=== PATIENT | female | born 1950 | race Caucasian/White ===

== ENCOUNTER 2020-06-26 17:29 | Inpatient (IN) | payer MEDICARE, BC ==
[2020-06-26] MEDS ORDERED: SODIUM CHLORIDE 0.9% 1,000 ML IV STA (18:01)
[2020-06-26 18:42] LABS: Basophils # (A) 0.2 k/uL (0-0.2); Basophils % (A) 1 %; Eosinophils # (A) 0.7 k/uL (0-0.7); Eosinophils % (A) 3 %; HCT 42.8 % (34.0-46.0); Lymphocytes # (A) 1.6 k/uL (1.0-4.8); Lymphocytes % (A) 7 %; MCH 29.7 pg (25.0-35.0); MCHC 32.7 g/dL (31.0-37.0); MCV 90.9 fL (80.0-100.0); Mean Platelet Volume 8.7; Monocytes # (A) 1.1 k/uL (0-1.0); Monocytes % (A) 5 %; Neutrophils # (A) 17.9 k/uL (1.3-7.7); Neutrophils % (A) 83 %; Platelet Count 483 k/uL (150-450); RBC 4.71 m/uL (3.80-5.40); RDW 13.2 % (11.5-15.5); WBC 21.7 k/uL (3.8-10.6)
[2020-06-26 18:55] LABS: Albumin 3.8 g/dL (3.5-5.0); Total Protein 6.8 g/dL (6.3-8.2)
[2020-06-26 19:07] LABS: Prothrombin Time >130.0 sec (9.0-12.0)
[2020-06-26 19:09] LABS: INR >10.0 (<1.2)
[2020-06-26 19:10] LABS: Partial Thromboplastin Time 89.6 sec (22.0-30.0)
[2020-06-26 19:15] LABS: Calcium 10.2 mg/dL (8.4-10.2); Potassium 5.4 mmol/L (3.5-5.1); Total Bilirubin 0.9 mg/dL (0.2-1.3)
--- NOTE | 2020-06-26 19:30 | XR ---
EXAMINATION TYPE: XR chest 2V DATE OF EXAM: 06/26/2020 COMPARISON: NONE HISTORY: Weakness TECHNIQUE: FINDINGS: Heart appears enlarged. There is no heart failure. Lungs are clear of consolidation. There is no sign of pleural effusion. Bony thorax is intact. IMPRESSION: No active cardiopulmonary disease. Cardiomegaly.
[2020-06-26 20:05] LABS: Amorphous Sediment,Urine Rare /hpf; Appearance,Urine Turbid (Clear); Bacteria,Urine Many /hpf; Bilirubin,Urine Negative (Negative); Blood,Urine Large (Negative); Color,Urine Light Red; Glucose,Urine (UA) Negative (Negative); Ketones,Urine Negative (Negative); Leukocyte Esterase,Urine Large (Negative); Mucus,Urine Rare /hpf; Nitrite,Urine Negative (Negative); PH, Urine 7.5 (5.0-8.0); Protein,Urine 2+ (Negative); RBC,Urine >182 /hpf (0-5); Specific Gravity,Urine 1.013 (1.001-1.035); WBC,Urine >182 /hpf (0-5)
[2020-06-26] MEDS ORDERED: cefTRIAXone IN SWFI 1,000 MG/10 ML SYRINGE IVP STA (20:12)
[2020-06-26] MEDS ORDERED: PHYTONADIONE ORAL 5 MG/5 ML ORAL.SYRG PO STA (20:13)
[2020-06-26] MEDS ORDERED: ACETAMINOPHEN TAB 325 MG TAB PO STA (21:06)
[2020-06-26] MEDS ORDERED: NALOXONE 0.4 MG/ML 1 ML VIAL IV PRN (21:08)
[2020-06-26] MEDS ORDERED: ACETAMINOPHEN TAB 325 MG TAB PO PRN (21:08)
--- NOTE | 2020-06-26 21:08 | ED ---
Weakness HPI - General Chief complaint: Weakness Stated complaint: Failure to thrive Time Seen by Provider: 06/26/20 17:47 Source: patient Mode of arrival: ambulatory - History of Present Illness Initial comments: Patient is a 70-year-old female past nuchal history of congestive heart failure, diabetes, hypertension, DVT/PE on Coumadin who presents to the emergency room with reported failure to thrive. EMS was called by the patient's sister. It was reported that the patient was sitting in her own urine and feces for several days. She has been unable to ambulate on her own. Normally uses a walker to ambulate. Patient states that she's been extremely weak. She has had right knee pain after she sustained a fall last month. She was seen at [facility] after the fall in did not have any injuries. States of the right knee pain has been getting progressively worse. Patient arrives with EMS and police who petition the patient. She states that she hasn't been eating or drinking for the past 4 days as she has been unable to get up and access her kitchen. She denies any chest pain or shortness of breath. No abdominal pain. No changes in her bowel or bladder habits. Denies any fevers or chills. No other alleviating, Perceptin or modifying factors - Related Data Home Medications Medication Instructions Recorded Confirmed Citalopram Hydrobromide [CeleXA] 40 mg PO DAILY 06/27/20 06/27/20 Furosemide [Lasix] 20 mg PO BID 06/27/20 06/27/20 Gabapentin 300 mg PO BID 06/27/20 06/27/20 Omeprazole 20 mg PO DAILY 06/27/20 06/27/20 Potassium Chloride [Klor-Con 20] 20 meq PO BID 06/27/20 06/27/20 Propranolol HCl 40 mg PO BID 06/27/20 06/27/20 Simvastatin [Zocor] 40 mg PO HS 06/27/20 06/27/20 Warfarin Sodium 5 mg PO HS 06/27/20 06/27/20 buPROPion XL [Wellbutrin Xl] 300 mg PO DAILY 06/27/20 06/27/20 lisinopriL [Prinivil] 20 mg PO BID 06/27/20 06/27/20 Previous Rx's Medication Instructions Recorded Cefuroxime Axetil [Ceftin] 500 mg PO BID 6 Days #12 tab 09/10/20 Allergies Allergy/AdvReac Type Severity Reaction Status Date / Time Sulfa (Sulfonamide Allergy Unknown Verified 06/27/20 10:29 Antibiotics) Review of Systems ROS Statement: Those systems with pertinent positive or pertinent negative responses have been documented in the HPI. ROS Other: All systems not noted in ROS Statement are negative. Past Medical History Past Medical History: Heart Failure, Diabetes Mellitus, Hypertension History of Any Multi-Drug Resistant Organisms: None Reported Past Surgical History: Bowel Resection, Cholecystectomy, Hysterectomy Past Psychological History: No Psychological Hx Reported Smoking Status: Former smoker Past Alcohol Use History: None Reported Past Drug Use History: Unable to Obtain - Past Family History Father Family Medical History: Myocardial Infarction ([place]) Mother Family Medical History: Cancer, Congestive Heart Failure (CHF), Dementia General Exam General appearance: alert, in no apparent distress, obese, other (unkempt ) Head exam: Present: atraumatic, normocephalic, normal inspection Eye exam: Present: normal appearance, PERRL, EOMI. Absent: scleral icterus, co njunctival injection, periorbital swelling ENT exam: Present: normal exam, mucous membranes moist Neck exam: Present: normal inspection. Absent: tenderness, meningismus, lymphadenopathy Respiratory exam: Present: normal lung sounds bilaterally. Absent: respiratory distress, wheezes, rales, rhonchi, stridor Cardiovascular Exam: Present: regular rate, normal rhythm, normal heart sounds. Absent: systolic murmur, diastolic murmur, rubs, gallop, clicks GI/Abdominal exam: Present: soft, normal bowel sounds. Absent: distended, tenderness, guarding, rebound, rigid External exam: Present: other (heavily soiled underwear. Bleeding noted - appears to be from the patients urethra. No vaginal or rectal bleeding appreciated. Significant amount of stool material throughout patients genital region) Extremities exam: Present: normal inspection, full ROM, normal capillary refill. Absent: tenderness, pedal edema, joint swelling, calf tenderness Back exam: Present: normal inspection Neurological exam: Present: alert, oriented X3, CN II-XII intact Psychiatric exam: Present: normal affect, normal mood Skin exam: Present: warm, dry, intact, normal color. Absent: rash Course Vital Signs 06/26/20 06/26/20 06/26/20 17:43 17:47 18:00 Temperature 98.7 F Pulse Rate 90 Pulse Rate [ Firer Automatic Stoker ] Respiratory 18 Rate Blood Pressure 95/70 95/70 Blood Pressure [Right Arm] O2 Sat by Pulse 93 L 93 L 93 L Oximetry 06/26/20 06/26/20 06/26/20 18:30 19:00 19:30 Temperature Pulse Rate Pulse Rate [ Firer Automatic Stoker ] Respiratory Rate Blood Pressure 105/67 98/62 106/74 Blood Pressure [Right Arm] O2 Sat by Pulse 93 L 94 L Oximetry 06/26/20 06/26/20 06/26/20 20:00 21:45 22:30 Temperature 98.0 F 97.0 F L Pulse Rate 90 Pulse Rate [ 86 Firer Automatic Stoker ] Respiratory 12 16 Rate Blood Pressure 106/74 106/79 Blood Pressure 91/66 [Right Arm] O2 Sat by Pulse 95 93 L Oximetry - Reevaluation(s) Reevaluation #1: Spoke with Dr. Cerda who states the patient can go to a regular floor 06/26/20 21:17 EKG Findings - EKG Comments: EKG Findings:: EKG demonstrates a normal sinus rhythm with a ventricular rate of 84. MO 174. QRS 86. QTC of 465. No acute ST segment elevations or depressions concerning for ischemic changes Medical Decision Making - Medical Decision Making Upon arrival the patient was placed into room 4. A thorough history and physical exam was performed. Patient does have notable bleeding between her thighs which appears to be coming from the urethra. No vaginal bleeding noted. She is hooked up to continuous pulse ox and cardiac monitoring. PIV is established and the patient was given a liter bolus of normal saline followed by 100 mL per hour. Rosario is placed and the specimen is sent for analysis. Chest x-rays performed. Laboratory studies are remarkable for a white count of 21.7. INR is greater than 10. PT greater than 1:30. Urinalysis is remarkable for greater than 182 red blood cells and white blood cells with many white blood cell clumps and many bacteria. Blood cultures were obtained. The patient was given a dose of Rocephin. I also gave the patient 5 mg of vitamin K. X-ray of the patient's right knee demonstrates a knee effusion. Patient does have signs of sepsis however due to her elevated INR I did not perform arthrocentesis. Orthopedics will be consult. I discussed the case with Radha from the [facility] also discuss case with Dr. Russell states the patient can go to a regular floor. INR will be ordered for the morning. Patient remained in stable condition awaiting transfer upstairs - Lab Data Result diagrams: 07/01/20 08:33 06/30/20 06:06 Lab Results 06/26/20 06/26/20 06/26/20 Range/Units 18:27 18:27 18:27 WBC 21.7 H (3.8-10.6) k/uL RBC 4.71 (3.80-5.40) m/uL Hgb 14.0 (11.4-16.0) gm/dL Hct 42.8 (34.0-46.0) % MCV 90.9 (80.0-100.0) fL MCH 29.7 (25.0-35.0) pg MCHC 32.7 (31.0-37.0) g/dL RDW 13.2 (11.5-15.5) % Plt Count 483 H (150-450) k/uL Neutrophils % 83 % Lymphocytes % 7 % Monocytes % 5 % Eosinophils % 3 % Basophils % 1 % Neutrophils # 17.9 H (1.3-7.7) k/uL Lymphocytes # 1.6 (1.0-4.8) k/uL Monocytes # 1.1 H (0-1.0) k/uL Eosinophils # 0.7 (0-0.7) k/uL Basophils # 0.2 (0-0.2) k/uL PT >130.0 H (9.0-12.0) sec INR >10.0 H* (<1.2) APTT 89.6 H (22.0-30.0) sec Sodium (137-145) mmol/L Potassium (3.5-5.1) mmol/L Chloride (98-107) mmol/L Carbon Dioxide (22-30) mmol/L Anion Gap mmol/L BUN (7-17) mg/dL Creatinine (0.52-1.04) mg/dL Est GFR (CKD-EPI)AfAm (>60 ml/min/1.73 sqM) Est GFR (CKD-EPI)NonAf (>60 ml/min/1.73 sqM) Glucose (74-99) mg/dL Plasma Lactic Acid Ray (0.7-2.0) mmol/L Calcium (8.4-10.2) mg/dL Total Bilirubin (0.2-1.3) mg/dL AST (14-36) U/L ALT (4-34) U/L Alkaline Phosphatase (38-126) U/L Creatine Kinase (30-135) U/L Troponin I (0.000-0.034) ng/mL NT-Pro-B Natriuret Pep pg/mL Total Protein (6.3-8.2) g/dL Albumin (3.5-5.0) g/dL Urine Color Light Red Urine Appearance Turbid H (Clear) Urine pH 7.5 (5.0-8.0) Ur Specific Redby 1.013 (1.001-1.035) Urine Protein 2+ H (Negative) Urine Glucose (UA) Negative (Negative) Urine Ketones Negative (Negative) Urine Blood Large H (Negative) Urine Nitrite Negative (Negative) Urine Bilirubin Negative (Negative) Urine Urobilinogen 4.0 (<2.0) mg/dL Ur Leukocyte Esterase Large H (Negative) Urine RBC >182 H (0-5) /hpf Urine WBC >182 H (0-5) /hpf Urine WBC Clumps Many H (None) /hpf Amorphous Sediment Rare H (None) /hpf Urine Bacteria Many H (None) /hpf Urine Mucus Rare H (None) /hpf 06/26/20 06/26/20 06/26/20 Range/Units 18:27 18:27 18:27 WBC (3.8-10.6) k/uL RBC (3.80-5.40) m/uL Hgb (11.4-16.0) gm/dL Hct (34.0-46.0) % MCV (80.0-100.0) fL MCH (25.0-35.0) pg MCHC (31.0-37.0) g/dL RDW (11.5-15.5) % Plt Count (150-450) k/uL Neutrophils % % Lymphocytes % % Monocytes % % Eosinophils % % Basophils % % Neutrophils # (1.3-7.7) k/uL Lymphocytes # (1.0-4.8) k/uL Monocytes # (0-1.0) k/uL Eosinophils # (0-0.7) k/uL Basophils # (0-0.2) k/uL PT (9.0-12.0) sec INR (<1.2) APTT (22.0-30.0) sec Sodium 138 (137-145) mmol/L Potassium 5.4 H (3.5-5.1) mmol/L Chloride 106 (98-107) mmol/L Carbon Dioxide 17 L (22-30) mmol/L Anion Gap 15 mmol/L BUN 32 H (7-17) mg/dL Creatinine 0.86 (0.52-1.04) mg/dL Est GFR (CKD-EPI)AfAm 79 (>60 ml/min/1.73 sqM) Est GFR (CKD-EPI)NonAf 68 (>60 ml/min/1.73 sqM) Glucose 120 H (74-99) mg/dL Plasma Lactic Acid Ray 1.4 (0.7-2.0) mmol/L Calcium 10.2 (8.4-10.2) mg/dL Total Bilirubin 0.9 (0.2-1.3) mg/dL AST 32 (14-36) U/L ALT 18 (4-34) U/L Alkaline Phosphatase 149 H (38-126) U/L Creatine Kinase 28 L (30-135) U/L Troponin I <0.012 (0.000-0.034) ng/mL NT-Pro-B Natriuret Pep pg/mL Total Protein 6.8 (6.3-8.2) g/dL Albumin 3.8 (3.5-5.0) g/dL Urine Color Urine Appearance (Clear) Urine pH (5.0-8.0) Ur Specific Redby (1.001-1.035) Urine Protein (Negative) Urine Glucose (UA) (Negative) Urine Ketones (Negative) Urine Blood (Negative) Urine Nitrite (Negative) Urine Bilirubin (Negative) Urine Urobilinogen (<2.0) mg/dL Ur Leukocyte Esterase (Negative) Urine RBC (0-5) /hpf Urine WBC (0-5) /hpf Urine WBC Clumps (None) /hpf Amorphous Sediment (None) /hpf Urine Bacteria (None) /hpf Urine Mucus (None) /hpf 06/26/20 Range/Units 18:27 WBC (3.8-10.6) k/uL RBC (3.80-5.40) m/uL Hgb (11.4-16.0) gm/dL Hct (34.0-46.0) % MCV (80.0-100.0) fL MCH (25.0-35.0) pg MCHC (31.0-37.0) g/dL RDW (11.5-15.5) % Plt Count (150-450) k/uL Neutrophils % % Lymphocytes % % Monocytes % % Eosinophils % % Basophils % % Neutrophils # (1.3-7.7) k/uL Lymphocytes # (1.0-4.8) k/uL Monocytes # (0-1.0) k/uL Eosinophils # (0-0.7) k/uL Basophils # (0-0.2) k/uL PT (9.0-12.0) sec INR (<1.2) APTT (22.0-30.0) sec Sodium (137-145) mmol/L Potassium (3.5-5.1) mmol/L Chloride (98-107) mmol/L Carbon Dioxide (22-30) mmol/L Anion Gap mmol/L BUN (7-17) mg/dL Creatinine (0.52-1.04) mg/dL Est GFR (CKD-EPI)AfAm (>60 ml/min/1.73 sqM) Est GFR (CKD-EPI)NonAf (>60 ml/min/1.73 sqM) Glucose (74-99) mg/dL Plasma Lactic Acid Ray (0.7-2.0) mmol/L Calcium (8.4-10.2) mg/dL Total Bilirubin (0.2-1.3) mg/dL AST (14-36) U/L ALT (4-34) U/L Alkaline Phosphatase (38-126) U/L Creatine Kinase (30-135) U/L Troponin I (0.000-0.034) ng/mL NT-Pro-B Natriuret Pep 123 pg/mL Total Protein (6.3-8.2) g/dL Albumin (3.5-5.0) g/dL Urine Color Urine Appearance (Clear) Urine pH (5.0-8.0) Ur Specific Redby (1.001-1.035) Urine Protein (Negative) Urine Glucose (UA) (Negative) Urine Ketones (Negative) Urine Blood (Negative) Urine Nitrite (Negative) Urine Bilirubin (Negative) Urine Urobilinogen (<2.0) mg/dL Ur Leukocyte Esterase (Negative) Urine RBC (0-5) /hpf Urine WBC (0-5) /hpf Urine WBC Clumps (None) /hpf Amorphous Sediment (None) /hpf Urine Bacteria (None) /hpf Urine Mucus (None) /hpf Disposition Clinical Impression: Supratherapeutic INR, Weakness, Right knee pain, Acute UTI, Hematuria Disposition: ADMITTED IP TO THIS [facility] Condition: Serious Is patient prescribed a controlled substance at d/c from ED?: No Decision to Admit Reason: Admit from EC Decision Date: 06/26/20 Decision Time: 21:07
--- NOTE | 2020-06-26 21:48 | XR ---
EXAMINATION TYPE: XR knee complete RT DATE OF EXAM: 06/26/2020 COMPARISON: NONE HISTORY: Knee pain TECHNIQUE: 3 views FINDINGS: There is minor spurring of the medial tibial condyle. I see no fracture nor dislocation. Th ere is probably knee joint effusion. There is no significant joint space narrowing. IMPRESSION: Knee joint effusion. Minor osteoarthritic changes.
[2020-06-26] MEDS: SODIUM CHLORIDE 0.9% 1,000 ML IV SCH (22:34)
[2020-06-26 23:26] LABS: Glucose,Whole Blood 121 mg/dL (75-99)
[2020-06-27] MEDS ORDERED: HYDROcodone/APAP 5-325MG 1 EACH TAB PO STA (01:35)
[2020-06-27 05:00] LABS: Basophils # (A) 0.1 k/uL (0-0.2); Basophils % (A) 1 %; Eosinophils # (A) 0.7 k/uL (0-0.7); Eosinophils % (A) 3 %; HCT 39.7 % (34.0-46.0); HGB 12.6 gm/dL (11.4-16.0); Hypochromasia Slight; Lymphocytes # (A) 1.8 k/uL (1.0-4.8); Lymphocytes % (A) 9 %; MCH 29.5 pg (25.0-35.0); MCHC 31.8 g/dL (31.0-37.0); MCV 92.8 fL (80.0-100.0); Mean Platelet Volume 8.4; Monocytes # (A) 1.2 k/uL (0-1.0); Monocytes % (A) 6 %; Neutrophils # (A) 17.1 k/uL (1.3-7.7); Neutrophils % (A) 81 %; Platelet Count 375 k/uL (150-450); RBC 4.27 m/uL (3.80-5.40); RDW 13.2 % (11.5-15.5)
[2020-06-27 05:14] LABS: INR 8.7 (<1.2); Prothrombin Time 91.4 sec (9.0-12.0)
[2020-06-27 05:21] LABS: Albumin 3.2 g/dL (3.5-5.0); Potassium 4.1 mmol/L (3.5-5.1); Total Bilirubin 0.9 mg/dL (0.2-1.3); Total Protein 5.8 g/dL (6.3-8.2)
[2020-06-27 06:41] LABS: Glucose,Whole Blood 125 mg/dL (75-99)
[2020-06-27] MEDS ORDERED: PHYTONADIONE 5 MG in SODIUM CHLORIDE 0.9% 50 ML IVPB STA (07:45)
[2020-06-27] MEDS: SODIUM CHLORIDE 0.9% 1,000 ML IV SCH ×2 (08:15→17:10)
[2020-06-27] MEDS ORDERED: NON FORMULARY DRUG (Omeprazole [Omeprazole] 20 MG) PO SCH (11:45)
[2020-06-27] MEDS: CITALOPRAM HYDROBROMIDE 20 MG TAB PO SCH (12:17)
[2020-06-27] MEDS: HYDROcodone/APAP 5-325MG 1 EACH TAB PO PRN ×2 (12:17→18:11)
[2020-06-27] MEDS: FAMOTIDINE 20 MG TAB PO SCH ×2 (12:18→23:39)
[2020-06-27] MEDS: GABAPENTIN 300 MG CAP PO SCH ×2 (12:18→23:39)
[2020-06-27] MEDS: PROPRANOLOL 40 MG TAB PO SCH (12:36)
[2020-06-27] MEDS: buPROPion XL 300 MG TAB.ER.24H PO SCH (12:36)
--- NOTE | 2020-06-27 12:45 | XR ---
EXAMINATION TYPE: XR ankle complete RT DATE OF EXAM: 06/27/2020 COMPARISON: NONE HISTORY: 70-year-old female previous fall, sprained right ankle, pain TECHNIQUE: 3 views FINDINGS: Ankle mortise is congruent with preservation of the distal tibiofibular overlap. Osteopenia . Talar dome is intact. Some degenerative spurring at the tibiotalar joint. Small delineation to the Achilles tendon. Small plantar spur. Vascular calcifications. No acute fracture, subluxation, or disl ocation seen. IMPRESSION: Osteopenia. Mild degenerative change of the tibiotalar joint. No acute osseous abnormality seen.
--- NOTE | 2020-06-27 19:51 | P.HPIM ---
History of Present Illness This is a pleasant 70 years old female with past medical history of heart failure and diabetes mellitus and hypertension. Presents with generalized weakness and fall. Patient fell when she ran over her right feet by her walker few days ago and she was suffering from pain since then and she was on the floor for a while with limited movement only, where she has wet herself with stool and urine, however she did not call 911 because she did not want to call for it, for 3-4 days she had difficulty moving around however after 3 days the prescription guidewire was Doppler of her strips when she called him and asked him to call 911. However the police have. In addition her so she can bring her to emergency room, this morning she is fully awake and oriented, she is called and she was telling me "I did not come to the hospital because I was stupid" however psych service are going To evaluate the patient. Also patient states after she fell notices swelling in her right knee but this did not start to hurt her till the last 2-3 days. Patient is still complains from some pain and tenderness in her right ankle, however is not swollen, no deformity and she can move easily. Patient states that she has history of 2 PEs in the past and thus why she is on Coumadin Leukocytosis of 20 1.0K, INR More Than 10 and Repeat One Is 8.7 Which Is Elevated. BMP Is Unremarkable with Normal Sodium at 135, Potassium 4.1 and Creatinine 0.8. Glucose 125, Liver Enzymes elevated. Troponin Is Negative Less Than 0.01. UA Is Having Suspicious of Infection. Left Knee X-Ray Showing Knee Joint Effusion EKG showing normal sinus rhythm at [address]-T changes. Chest x-ray showing no active tissue. In the emergency room patient was started on ceftriaxone and normal sounding 100 mL per hour. She received vitamin K. Review of Systems CONSTITUTIONAL: No fever, no malaise, no fatigue. HEENT: No recent visual problems or hearing problems. Denied any sore throat. CARDIOVASCULAR: No orthopnea, PND, no palpitations, no syncope. PULMONARY: No shortness of breath, no cough, no hemoptysis. GASTROINTESTINAL: No diarrhea, no nausea, no vomiting, no abdominal pain. Normoactive bowel sounds. NEUROLOGICAL: No headaches, no weakness, no numbness. MUSCULOSKELETAL/RHEUMATOLOGICAL: Denies any joint pain, swelling, or any muscle pain. ENDOCRINE: Denies any polyuria or polydipsia. Past Medical History Past Medical History: Heart Failure, Diabetes Mellitus, Hypertension History of Any Multi-Drug Resistant Organisms: None Reported Past Surgical History: Bowel Resection, Cholecystectomy, Hysterectomy Past Anesthesia/Blood Transfusion Reactions: No Reported Reaction Past Psychological History: No Psychological Hx Reported Smoking Status: Former smoker Past Alcohol Use History: None Reported Past Drug Use History: Unable to Obtain - Past Family History Father Family Medical History: Myocardial Infarction ([place]) Mother Family Medical History: Cancer, Congestive Heart Failure (CHF), Dementia Medications and Allergies Home Medications Medication Instructions Recorded Confirmed Type Citalopram Hydrobromide [CeleXA] 40 mg PO DAILY 06/27/20 06/27/20 History Furosemide [Lasix] 20 mg PO BID 06/27/20 06/27/20 History Gabapentin 300 mg PO BID 06/27/20 06/27/20 History Omeprazole 20 mg PO DAILY 06/27/20 06/27/20 History Potassium Chloride [Klor-Con 20] 20 meq PO BID 06/27/20 06/27/20 History Propranolol HCl 40 mg PO BID 06/27/20 06/27/20 History Simvastatin [Zocor] 40 mg PO HS 06/27/20 06/27/20 History Warfarin Sodium 5 mg PO HS 06/27/20 06/27/20 History buPROPion XL [Wellbutrin Xl] 300 mg PO DAILY 06/27/20 06/27/20 History lisinopriL [Prinivil] 20 mg PO BID 06/27/20 06/27/20 History Allergies Allergy/AdvReac Type Severity Reaction Status Date / Time Sulfa (Sulfonamide Allergy Unknown Verified 06/27/20 10:29 Antibiotics) Physical Exam Vitals: Vital Signs Temp Pulse Pulse Resp BP BP Pulse Ox 06/27/20 08:00 98.1 F 93 16 106/62 93 L 06/27/20 07:00 80 19 06/27/20 06:00 81 19 06/27/20 05:00 82 18 06/27/20 04:00 98.2 F 82 19 108/62 95 06/27/20 03:00 86 20 06/27/20 02:00 84 13 06/27/20 01:30 89 13 06/27/20 01:00 87 12 97/58 06/27/20 00:30 85 16 91/66 06/27/20 00:00 98.0 F 86 13 97/58 96 06/26/20 23:00 116/71 06/26/20 22:30 97.0 F L 90 16 106/79 93 L 06/26/20 21:45 98.0 F 86 12 91/66 95 06/26/20 20:00 106/74 06/26/20 19:30 106/74 06/26/20 19:00 98/62 94 L 06/26/20 18:30 105/67 93 L 06/26/20 18:00 95/70 93 L 06/26/20 17:47 93 L 06/26/20 17:43 98.7 F 90 18 95/70 93 L Intake and Output 06/26/20 06/27/20 06/27/20 22:59 06:59 14:59 Intake Total 100 800 200 Output Total 100 750 60 Balance 0 50 140 Intake: IV 100 800 200 Sodium Chloride 0.9% 1, 100 800 200 000 ml @ 100 mls/hr IV . Q10H [facility] Rx#:[id number] Output: Urine 100 750 60 Other: Voiding Method Indwelling Catheter Indwelling Catheter Weight 121.563 kg 114.8 kg -GENERAL: The patient is alert and oriented x3, not in any acute distress. Obese HEENT: Pupils are round and equally reacting to light. EOMI. No scleral icterus. No conjunctival pallor. Normocephalic, atraumatic. No pharyngeal erythema. No thyromegaly. CARDIOVASCULAR: S1 and S2 present. No murmurs, rubs, or gallops. PULMONARY: Chest is clear to auscultation, no wheezing or crackles. ABDOMEN: Soft, nontender, nondistended, normoactive bowel sounds. No palpable organomegaly. MUSCULOSKELETAL: No joint swelling or deformity. -EXTREMITIES: No cyanosis, clubbing, or pedal edema. Right knee swollen, tender with limitation movement however there is no erythema or increased warmth NEUROLOGICAL: Gross neurological examination did not reveal any focal deficits. SKIN: No rashes. No petechiae Results CBC & Chem 7: 06/27/20 04:30 06/27/20 04:30 Labs: Abnormal Lab Results - Last 24 Hours (Table) 06/26/20 06/26/2006/26/20 Range/Units 18:27 18:27 18:27 WBC 21.7 H (3.8-10.6) k/uL Plt Count 483 H (150-450) k/uL Neutrophils # 17.9 H (1.3-7.7) k/uL Monocytes # 1.1 H (0-1.0) k/uL PT >130.0 H (9.0-12.0) sec INR >10.0 H* (<1.2) APTT 89.6 H (22.0-30.0) sec Sodium (137-145) mmol/L Potassium (3.5-5.1) mmol/L Carbon Dioxide (22-30) mmol/L BUN (7-17) mg/dL Glucose (74-99) mg/dL POC Glucose (mg/dL) (75-99) mg/dL Alkaline Phosphatase (38-126) U/L Creatine Kinase (30-135) U/L Total Protein (6.3-8.2) g/dL Albumin (3.5-5.0) g/dL Urine Appearance Turbid H (Clear) Urine Protein 2+ H (Negative) Urine Blood Large H (Negative) Ur Leukocyte Esterase Large H (Negative) Urine RBC >182 H (0-5) /hpf Urine WBC >182 H (0-5) /hpf Urine WBC Clumps Many H (None) /hpf Amorphous Sediment Rare H (None) /hpf Urine Bacteria Many H (None) /hpf Urine Mucus Rare H (None) /hpf 06/26/20 06/26/20 06/27/20 Range/Units 18:27 23:25 04:30 WBC 21.0 H (3.8-10.6) k/uL Plt Count (150-450) k/uL Neutrophils # 17.1 H (1.3-7.7) k/uL Monocytes # 1.2 H (0-1.0) k/uL PT (9.0-12.0) sec INR (<1.2) APTT (22.0-30.0) sec Sodium (137-145) mmol/L Potassium 5.4 H (3.5-5.1) mmol/L Carbon Dioxide 17 L (22-30) mmol/L BUN 32 H (7-17) mg/dL Glucose 120 H (74-99) mg/dL POC Glucose (mg/dL) 121 H (75-99) mg/dL Alkaline Phosphatase 149 H (38-126) U/L Creatine Kinase 28 L (30-135) U/L Total Protein (6.3-8.2) g/dL Albumin (3.5-5.0) g/dL Urine Appearance (Clear) Urine Protein (Negative) Urine Blood (Negative) Ur Leukocyte Esterase (Negative) Urine RBC (0-5) /hpf Urine WBC (0-5) /hpf Urine WBC Clumps (None) /hpf Amorphous Sediment (None) /hpf Urine Bacteria (None) /hpf Urine Mucus (None) /hpf 06/27/20 06/27/20 06/27/20 Range/Units 04:30 04:30 06:39 WBC (3.8-10.6) k/uL Plt Count (150-450) k/uL Neutrophils # (1.3-7.7) k/uL Monocytes # (0-1.0) k/uL PT 91.4 H (9.0-12.0) sec INR 8.7 H* (<1.2) APTT (22.0-30.0) sec Sodium 135 L (137-145) mmol/L Potassium (3.5-5.1) mmol/L Carbon Dioxide 21 L (22-30) mmol/L BUN 29 H (7-17) mg/dL Glucose 125 H (74-99) mg/dL POC Glucose (mg/dL) 125 H (75-99) mg/dL Alkaline Phosphatase (38-126) U/L Creatine Kinase (30-135) U/L Total Protein 5.8 L (6.3-8.2) g/dL Albumin 3.2 L (3.5-5.0) g/dL Urine Appearance (Clear) Urine Protein (Negative) Urine Blood (Negative) Ur Leukocyte Esterase (Negative) Urine RBC (0-5) /hpf Urine WBC (0-5) /hpf Urine WBC Clumps (None) /hpf Amorphous Sediment (None) /hpf Urine Bacteria (None) /hpf Urine Mucus (None) /hpf Microbiology - Last 24 Hours (Table) 06/26/20 18:27 Urine Culture - Preliminary Urine,Voided Thrombosis Risk Factor Assmnt - Choose All That Apply Each Factor Represents 1 point: Medical pt on bed rest, Obesity (BMI >25), Swollen legs (current) Each Risk Factor Represents 2 Points: Age 61-74 years Each Risk Factor Represents 3 Points: History of DVT/PE Other congenital or acquired thrombophilia - If yes, enter type in comment: No Thrombosis Risk Factor Assessment Total Risk Factor Score: 8 Thrombosis Risk Factor Assessment Level: High Risk Assessment and Plan Assessment: Acute urinary tract infection Generalized weakness secondary to above Left Knee increased effusion, rule out left knee hemarthrosis Coagulopathy secondary to Coumadin History of DVT/PE on Coumadin Hypertension Diabetes mellitus Heart failure Obesity with BMI of 39
[2020-06-27 20:40] LABS: Glucose,Whole Blood 147 mg/dL (75-99)
[2020-06-27] MEDS ORDERED: SIMVASTATIN 40 MG PO SCH (21:00)
[2020-06-27] MEDS: ATORVASTATIN 40 MG TAB PO SCH (23:39)
[2020-06-28] MEDS: PROPRANOLOL 40 MG TAB PO SCH ×3 (00:02→22:05)
--- NOTE | 2020-06-28 02:54 | CONS ---
CONSULTATION PSYCHIATRIC CONSULTATION. REASON FOR CONSULTATION: The patient was petitioned by the police cadet. HISTORY OF PRESENT ILLNESS: The patient is 70, female with multiple medical problems including diabetes, hypertension, deep venous thrombosis, congestive heart failure and chronic arthritis. The patient presented to the emergency room with a petition filled by the police cadet stated that the patient has been not eating for a couple of days and she has been unable to get up just lying in her urine and feces for several day. Today, patient stated that she knows that she has to accept her disability. She said "I am stubborn. I do not ask for help and I do not want to accept that I will be permanently handicapped". Patient stated that she has been hoarding everything in her apartment to the point that the landlord called Adult Protective Service who met with her a couple of weeks ago and they told her they will provide her with someone to clean her apartment and get rid of every "lot of junk". The patient stated that she needs to accept her disability and to change her attitude and "ask for help". She stated that she has her puppy, vadim, who has been her "a spoiled baby this is my baby". Today, I talked to the patient. She denied any suicidal or homicidal ideation. She denied any psychotic features. She stated that it is her fault that she did not ask for help when she felt weak and she fell down and she could not stand up. PAST PSYCHIATRIC HISTORY: There is no previous inpatient hospitalization. There is outpatient with Dr. Floyd Wilkes for many years and he has been giving her her psychotropic medications including Wellbutrin XL 300 mg in addition to citalopram 40 mg daily. SUBSTANCE ABUSE HISTORY: Patient denied any alcohol or illicit drug use. FAMILY HISTORY OF PSYCHIATRIC ILLNESS: She has a brother who killed himself more than 10 years ago. BRIEF SOCIAL HISTORY: The patient has 4 sisters and one brother who is 11 years ago. She never had been . 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 MEDICATIONS: Regarding her current medication, she is on gabapentin, Pepcid, propranolol, Lipitor, [place]. ALLERGIES: Allergy to SULFA. MENTAL STATUS EXAMINATION: Patient appears her stated age. She is alert, cooperative, very friendly, appears to have fair hygiene and grooming, wearing hospital gown. She gave good eye contact. There is no agitation. The patient's speech is increased in productivity, but not pressured. She reported that her mood is anxious, but her affect is constricted. She denied having any suicidal or homicidal ideation, intent, or plan. She denied having any visual hallucination or auditory hallucinations. Her thought process is circumstantial. She is alert, oriented x3. Her insight and judgment are fair. IMPRESSION: 1. Delirious reaction due to dehydration and metabolic disturbance, resolving. 2. Major depression disorder, mild, without psychotic features. 3. History of obsessive compulsive disorder, hoarding type. PLAN: At this time the patient does not meet criteria for inpatient psychiatric admission, so please disregard the petition. Delirium precautions recommended with the patient including avoid using narcotic and [employer] sedative also limit the anticholinergic medication when possible. Continue her on her current medications, Wellbutrin and Celexa. painting worker to gather further history from her sister and the patient might need placement. It seems to me that due to her multiple physical issues, she is not able to live on her own or at least provide with additional resources at home to help her medically. Psychiatry will sign off at this point and please contact me with any questions. KENYA / MEIN: [phone] /
[2020-06-28] MEDS: SODIUM CHLORIDE 0.9% 1,000 ML IV SCH ×2 (04:07→14:47)
[2020-06-28] MEDS: HYDROcodone/APAP 5-325MG 1 EACH TAB PO PRN ×2 (04:07→14:45)
[2020-06-28 05:07] LABS: Basophils # (A) 0.1 k/uL (0-0.2); Basophils % (A) 1 %; Eosinophils # (A) 0.4 k/uL (0-0.7); Eosinophils % (A) 4 %; HCT 33.4 % (34.0-46.0); HGB 10.7 gm/dL (11.4-16.0); Lymphocytes % (A) 9 %; MCH 29.6 pg (25.0-35.0); MCV 92.5 fL (80.0-100.0); Mean Platelet Volume 8.2; Monocytes # (A) 0.7 k/uL (0-1.0); Monocytes % (A) 7 %; Neutrophils # (A) 8.1 k/uL (1.3-7.7); Neutrophils % (A) 77 %; Platelet Count 281 k/uL (150-450); RBC 3.61 m/uL (3.80-5.40); RDW 13.1 % (11.5-15.5); WBC 10.5 k/uL (3.8-10.6)
[2020-06-28 05:16] LABS: INR 1.2 (<1.2); Prothrombin Time 11.7 sec (9.0-12.0)
[2020-06-28 05:35] LABS: Albumin 2.5 g/dL (3.5-5.0); Calcium 8.4 mg/dL (8.4-10.2); Total Bilirubin 0.5 mg/dL (0.2-1.3); Total Protein 4.8 g/dL (6.3-8.2)
--- NOTE | 2020-06-28 08:39 | US ---
EXAMINATION TYPE: US renals and bladder DATE OF EXAM: 06/28/2020 COMPARISON: NONE CLINICAL HISTORY: uti. ICU patient, morbidly obese, recent fall, abn labs, UTI EXAM MEASUREMENTS: Right Kidney: 10.1 x 5.3 x 5.1 cm Left Kidney: 10.0 x 5.7 x 4.1 cm large body habitus limits imaging Right Kidney: No hydronephrosis or masses seen Left Kidney: Very limited view, estimated size only Bladder: not distended IMPRESSION: 1. No acute retroperitoneal ultrasound abnormality. 2. Exam is very limited due to body habitus.
[2020-06-28] MEDS: buPROPion XL 300 MG TAB.ER.24H PO SCH (08:59)
[2020-06-28] MEDS: GABAPENTIN 300 MG CAP PO SCH ×2 (08:59→22:05)
[2020-06-28] MEDS: FAMOTIDINE 20 MG TAB PO SCH ×2 (08:59→22:05)
[2020-06-28] MEDS: CITALOPRAM HYDROBROMIDE 20 MG TAB PO SCH (08:59)
--- NOTE | 2020-06-28 12:30 | P.CNOR ---
History of Present Illness - [facility] Consult date: 06/28/20 Requesting physician: Rodney E Roxann Consult reason: joint pain (Right knee pain) History of present illness: Patient is a pleasant 70-year-old female who is seen and examined at bedside in regards to right knee pain. Medicine was concerned for knee effusion versus hemarthrosis given her supratherapeutic INR 8.7. There has been some difficulty with her history. Some of the the patient's history is obtained from the patient and some nursing from the family. Patient does admit over the past several months she has been fairly non-ambulatory and staying in her home since the outbreak of Covid-19. She was recently found at her home by family members and the patient had been lying on the floor for several days even up to a week in her own urine and feces. She was petitioned to the emergency department by the police and EMS. Patient states she did have a fall last week but did not have any injuries at that time. She states most significantly she had been experiencing right ankle pain. She states the right ankle pain has subsided and she is experiencing some right knee pain just over the past 3-4 days. Resting states consultation with psychology has been placed. Patient currently has no other complaints at the bedside today. Patient was found to have a urinary tract infection with gram-negative bacilli. Initially at presentation her WBC was 21.0 and is currently 10.5. She is currently on Rocephin. Patient does admit to generalized weakness of the upper extremities and lower extremities. Patient does have a history of DVT/PE and is currently on Coumadin. She was found be supratherapeutic with her INR at 8.7 at presentation to the emergency department and has reduced to 1.2. Past Medical History Past Medical History: Heart Failure, Diabetes Mellitus, Hypertension History of Any Multi-Drug Resistant Organisms: None Reported Past Surgical History: Bowel Resection, Cholecystectomy, Hysterectomy Past Anesthesia/Blood Transfusion Reactions: No Reported Reaction Past Psychological History: No Psychological Hx Reported Smoking Status: Former smoker Past Alcohol Use History: None Reported Past Drug Use History: Unable to Obtain - Past Family History Father Family Medical History: Myocardial Infarction (MD) Mother Family Medical History: Cancer, Congestive Heart Failure (CHF), Dementia Medications and Allergies Home Medications Medication Instructions Recorded Confirmed Type Citalopram Hydrobromide [CeleXA] 40 mg PO DAILY 06/27/20 06/27/20 History Furosemide [Lasix] 20 mg PO BID 06/27/20 06/27/20 History Gabapentin 300 mg PO BID 06/27/20 06/27/20 History Omeprazole 20 mg PO DAILY 06/27/20 06/27/20 History Potassium Chloride [Klor-Con 20] 20 meq PO BID 06/27/20 06/27/20 History Propranolol HCl 40 mg PO BID 06/27/20 06/27/20 History Simvastatin [Zocor] 40 mg PO HS 06/27/20 06/27/20 History Warfarin Sodium 5 mg PO HS 06/27/20 06/27/20 History buPROPion XL [Wellbutrin Xl] 300 mg PO DAILY 06/27/20 06/27/20 History lisinopriL [Prinivil] 20 mg PO BID 06/27/20 06/27/20 History Allergies Allergy/AdvReac Type Severity Reaction Status Date / Time Sulfa (Sulfonamide Allergy Unknown Verified 06/27/20 10:29 Antibiotics) Physical Examination Physical Exam: Patient is awake, alert, and oriented 3 Vital signs stable Adequate chest excursion with deep inspiration and expiration; O2 nasal cannula intact Mild firmness to palpation over the right superior lateral portion of the right knee Some generalized warmth of the entire right lower extremity No erythema or obvious signs of infection at the right knee Some pain with palpation along the right medial joint line No increased pain with varus or valgus stress of the right knee Small healing bruise over the right superior lateral portion of the right knee which is turning yellow/green Patient is able to perform dorsiflexion and plantarflexion of the right lower extremity without difficulty Neurovascularly intact right lower extremity No pain with palpation along the medial or lateral malleolus of the right ankle Results Pertinent studies: X-ray of the right knee taken on 06/26/2020: Minor spurring at the medial tibial condyle; no significant degenerative disc disease; probable knee joint effusion X-rays of the right ankle taken on 06/27/2020: Osteopenia; mild degenerative changes at the tibiotalar joint; no acute osseous abnormality - Labs Labs: Abnormal Lab Results - Last 24 Hours (Table) 06/27/20 06/28/20 06/28/20 Range/Units 20:38 04:35 04:35 RBC 3.61 L (3.80-5.40) m/uL Hgb 10.7 L (11.4-16.0) gm/dL Hct 33.4 L (34.0-46.0) % Neutrophils # 8.1 H (1.3-7.7) k/uL INR 1.2 H (<1.2) Sodium (137-145) mmol/L BUN (7-17) mg/dL Glucose (74-99) mg/dL POC Glucose (mg/dL) 147 H (75-99) mg/dL Total Protein (6.3-8.2) g/dL Albumin (3.5-5.0) g/dL 06/28/20 Range/Units 04:35 RBC (3.80-5.40) m/uL Hgb (11.4-16.0) gm/dL Hct (34.0-46.0) % Neutrophils # (1.3-7.7) k/uL INR (<1.2) Sodium 134 L (137-145) mmol/L BUN 19 H (7-17) mg/dL Glucose 141 H (74-99) mg/dL POC Glucose (mg/dL) (75-99) mg/dL Total Protein 4.8 L (6.3-8.2) g/dL Albumin 2.5 L (3.5-5.0) g/dL Microbiology - Last 24 Hours (Table) 06/26/20 18:27 Urine Culture - Preliminary Urine,Voided Gram Neg Bacilli Gram Neg Bacilli#2 06/26/20 20:49 Blood Culture - Preliminary Blood No Growth after 24 hours H & H 06/26/20 06/27/20 06/28/20 Range/Units 18:27 04:30 04:35 Hgb 14.0 12.6 10.7 L (11.4-16.0) gm/dL Hct 42.8 39.7 33.4 L (34.0-46.0) % Coagulation 06/26/20 06/27/20 06/28/20 Range/Units 18:27 04:30 04:35 INR >10.0 H* 8.7 H* 1.2 H (<1.2) Result Diagrams: 06/28/20 04:35 06/28/20 04:35 Assessment and Plan Assessment: Assessment: Right knee pain Mild effusion of the left knee, possible hemarthrosis Generalized weakness bilateral upper extremities and lower extremities Acute urinary tract infection Long-term anticoagulation use with Coumadin Acute urinary tract infection Hypertension Diabetes mellitus Heart disease Obesity with BMI of 41.6 (1) Knee effusion, right Current Visit: Yes Status: Acute Code(s): M25.461 - EFFUSION, RIGHT KNEE SNOMED Code(s): 889689353110679 (2) Diabetes mellitus Current Visit: Yes Status: Acute Code(s): E11.9 - TYPE 2 DIABETES MELLITUS WITHOUT COMPLICATIONS SNOMED Code(s): 51245926 (3) Heart disease Current Visit: Yes Status: Acute Code(s): I51.9 - HEART DISEASE, UNSPECIFIED SNOMED Code(s): 32505167 (4) Obesities, morbid Current Visit: Yes Status: Acute Code(s): E66.01 - MORBID (SEVERE) OBESITY DUE TO EXCESS CALORIES SNOMED Code(s): 666092346 (5) Hypertension Current Visit: Yes Status: Acute Code(s): I10 - ESSENTIAL (PRIMARY) HYPERTENSION SNOMED Code(s): 49801967 (6) Acute UTI Current Visit: Yes Status: Acute Code(s): N39.0 - URINARY TRACT INFECTION, S ITE NOT SPECIFIED SNOMED Code(s): 939804305 (7) Right knee pain Current Visit: Yes Status: Acute Code(s): M25.561 - PAIN IN RIGHT KNEE SNOMED Code(s): 44172759 (8) Supratherapeutic INR Current Visit: Yes Status: Acute Code(s): R79.1 - ABNORMAL COAGULATION PROFILE SNOMED Code(s): 028003126 (9) Weakness Current Visit: Yes Status: Acute Code(s): R53.1 - WEAKNESS SNOMED Code(s): 62761110 Plan: Plan: 1. Patient is discussed with Dr. Poncho Roldan. After physical examination of the patient, reviewing her imaging, and further discussion with the patient, we'll currently plan continue conservative treatment at this time. She has been experiencing some increased pain in her right knee over the past couple days. She is known have fallen approximately week ago without any injuries or increased knee pain at that time. She had been experiencing increased right ankle pain which has subsided. Imaging modalities of the right knee and ankle were taken without evidence of fracture or dislocation. She does have some generalized swelling around the right knee but I do not palpate any specific fluid collection. She has a mild firmness to palpation over the right superior lateral portion of the right knee. She has some generalized warmth of the entire right lower extremity. I do not see any significant erythema or obvious signs of infection at the right knee. Her most significant pain with palpation along the right medial joint line. She does not have increased pain with varus or valgus stress of the right knee. Patient also states she is been fairly non- weightbearing over the past several months since the outbreak of Covid-19. At t his time we will plan for Rahul wrap and ice over the right knee for comfort support as needed. We will plan to follow the patient for further evaluation. If her knee fusion appears to worsen, may plan for aspiration of her right knee. Patient feels continuous conservative treatment without aspiration of the right knee currently is a good plan of care. She does state her knee feels better after placement of Rahul wrap to the right knee. We're not planning for a treatment evaluation regards to her right ankle. She is able to perform good active range of motion right ankle without difficulty. She has no pain of the right ankle during physical exam. 2. Patient will continue to be seen and examined by medicine for other medical diagnoses 3. Patient currently waiting for consultation with psychology Time with Patient: Greater than 30
--- NOTE | 2020-06-28 15:51 | P.PN ---
Subjective Progress Note Date: 06/28/20 This is a 70-year-old female admitted with failure to thrive, increased weakness, medical debility, acute UTI, living in substandard conditions with APS following. Reports right knee pain from recent fall a month ago worsening. Knee x-ray reporting joint effusion. Orthopedic consult in place with recomme ndations pending. Good diet intake, denies nausea vomiting or diarrhea. Denies abdominal pain. Denies chest pain, palpitations or shortness of breath. Afebrile, normal WBC. Significant improvement in INR down to 1.2 from 8.7. Renal ultrasound pending Renal function improving, BUN 19, creatinine 0.79. Blood sugars controlled.VSS, maintaining O2 sats in the 90s on room air. Blood and Urine cultures pending. Objective - Vital Signs Vital signs: Vital Signs Temp 97.9 F 06/28/20 08:00 Pulse 70 06/28/20 08:00 Resp 15 06/28/20 08:00 BP 126/68 06/28/20 08:00 Pulse Ox 92 L 06/28/20 08:00 Intake & Output 06/27/20 06/28/20 06/28/20 18:59 06:59 18:59 Intake Total 1050 800 Output Total 470 375 Balance 580 425 Weight 120.5 kg Intake: IV 1000 800 Sodium Chloride 0.9% 1, 1000 800 000 ml @ 100 mls/hr IV . Q10H [facility] Rx#:[id number] Intake, IV Titration 50 Amount cefTRIAXone 1 gm In 50 Sodium Chloride 0.9% 50 ml @ 100 mls/hr IVPB Q24HR [facility] Rx#:[id number] Output: Urine 470 375 Other: Voiding Method Indwelling Catheter Indwelling Catheter - Exam PHYSICAL EXAM: VITAL SIGNS: As above GENERAL: Sitting up in bed, no acute distress HEENT: Conjunctivae normal. eyes normal. NECK: No JVD. No thyroid enlargement. No LNs, oral mucosa moist CARDIOVASCULAR: S1, S2 regular.. No murmur RESPIRATION: Breath sounds diminished in the bases. No rhonchi or crackles. No bronchial breathing. ABDOMEN: Soft, nontender . No guarding. no masses palpable. No ascites, No h epatosplenomegaly.Bowel sounds heard. LEGS: No edema. no swelling. No calf tenderness PSYCHIATRY: Alert and oriented X3, mood and affect normal. NERVOUS SYSTEM: Cranial N 2-12 grossly normal. Moves all 4 limbs. Diffuse weakness No focal deficits. Strength and sensation grossly intact.. Skin: Warm and dry, no rash - Labs CBC & Chem 7: 06/28/20 04:35 06/28/20 04:35 Labs: Abnormal Lab Results - Last 24 Hours (Table) 06/27/20 06/28/20 06/28/20 Range/Units 20:38 04:35 04:35 RBC 3.61 L (3.80-5.40) m/uL Hgb 10.7 L (11.4-16.0) gm/dL Hct 33.4 L (34.0-46.0) % Neutrophils # 8.1 H (1.3-7.7) k/uL INR 1.2 H (<1.2) Sodium (137-145) mmol/L BUN (7-17) mg/dL Glucose (74-99) mg/dL POC Glucose (mg/dL) 147 H (75-99) mg/dL Total Protein (6.3-8.2) g/dL Albumin (3.5-5.0) g/dL 06/28/20 Range/Units 04:35 RBC (3.80-5.40) m/uL Hgb (11.4-16.0) gm/dL Hct (34.0-46.0) % Neutrophils # (1.3-7.7) k/uL INR (<1.2) Sodium 134 L (137-145) mmol/L BUN 19 H (7-17) mg/dL Glucose 141 H (74-99) mg/dL POC Glucose (mg/dL) (75-99) mg/dL Total Protein 4.8 L (6.3-8.2) g/dL Albumin 2.5 L (3.5-5.0) g/dL Microbiology - Last 24 Hours (Table) 06/26/20 20:49 Blood Culture - Preliminary Blood No Growth after 24 hours 06/26/20 18:27 Urine Culture - Preliminary Urine,Voided Assessment and Plan Assessment: Acute urinary tract infection, cultures pending, present on admission Generalized weakness secondary to above Right Knee increased effusion, possible hemarthrosis Coagulopathy secondary to Coumadin History of DVT/PE on Coumadin Hypertension Diabetes mellitus Heart failure Obesity with BMI of 39 Plan: Continue on current medication regime ,monitoring and sent to make treatment. Maintain supportive care. Orthopedic/psych consults in place, recommendations pending. Patient is stable for transfer out of ICU to [facility] with remote telemetry. The impression and plan of care has been dictated as directed. : I performed a history and examination of this patient, discussed the same with the dictator. I agree with the dictator's note ,documented as a scribe. Any additional findings or plans will be noted.
[2020-06-28 16:55] LABS: Glucose,Whole Blood 144 mg/dL (75-99)
[2020-06-28 20:29] LABS: Glucose,Whole Blood 151 mg/dL (75-99)
[2020-06-28] MEDS: ATORVASTATIN 40 MG TAB PO SCH (22:05)
[2020-06-29] MEDS: SODIUM CHLORIDE 0.9% 1,000 ML IV SCH ×3 (00:36→19:50)
[2020-06-29 01:27] LABS: Hemoglobin A1C 6.3 % (4.0-6.0)
[2020-06-29 05:09] LABS: Basophils # (A) 0.1 k/uL (0-0.2); Basophils % (A) 1 %; Eosinophils # (A) 0.3 k/uL (0-0.7); Eosinophils % (A) 4 %; HCT 32.4 % (34.0-46.0); HGB 10.6 gm/dL (11.4-16.0); Lymphocytes # (A) 1.1 k/uL (1.0-4.8); Lymphocytes % (A) 12 %; MCH 29.9 pg (25.0-35.0); MCHC 32.7 g/dL (31.0-37.0); MCV 91.5 fL (80.0-100.0); Mean Platelet Volume 8.3; Monocytes # (A) 0.7 k/uL (0-1.0); Monocytes % (A) 8 %; Neutrophils % (A) 74 %; Platelet Count 284 k/uL (150-450); RBC 3.54 m/uL (3.80-5.40); RDW 13.1 % (11.5-15.5); WBC 9.4 k/uL (3.8-10.6)
[2020-06-29 05:25] LABS: ALT 13 U/L (4-34); AST 18 U/L (14-36); African American GFR (CKD) >90 (>60 ml/min/1.73 sqM); Albumin 2.5 g/dL (3.5-5.0); Alkaline Phosphatase 92 U/L (38-126); Anion Gap 6 mmol/L; Blood Urea Nitrogen 10 mg/dL (7-17); Calcium 8.4 mg/dL (8.4-10.2); Carbon Dioxide 26 mmol/L (22-30); Chloride 103 mmol/L (98-107); Glucose 106 mg/dL (74-99); Non-African American GFR(CKD) 89 (>60 ml/min/1.73 sqM); Sodium 135 mmol/L (137-145); Total Bilirubin 0.6 mg/dL (0.2-1.3); Total Protein 4.9 g/dL (6.3-8.2)
--- NOTE | 2020-06-29 09:28 | P.PN ---
Progress Note - Text Progress Note Date: 06/29/20 Orthopedics: History of present illness: Patient is a pleasant 70-year-old female who is seen and examined at bedside for follow-up evaluation in regards to right knee pain. Yesterday an Rahul wrap was placed over her right knee and ice was applied. Patient states since that time her knee pain has significant improved. She does continue to be in bed and has not ambulated since yesterday. Consultation was previously placed with psychology. Patient currently has no other complaints at the bedside today. Patient was found to have a urinary tract infection with gram-negative bacilli. Initially at presentation her WBC was 21.0 and is currently 10.5. She is currently on Rocephin. Patient does admit to generalized weakness of the upper extremities and lower extremities. Patient does have a history of DVT/PE and is currently on Coumadin. She was found be supratherapeutic with her INR at 8.7 at presentation to the emergency department and has reduced to 1.2. Patient history: There has been some difficulty with her history. Some of the the patient's history is obtained from the patient and some nursing from the family. Patient does admit over the past several months she has been fairly non-ambulatory and staying in her home since the outbreak of Covid-19. She was recently found at her home by family members and the patient had been lying on the floor for several days even up to a week in her own urine and feces. She was petitioned to the emergency department by the police and EMS. Patient states she did have a fall last week but did not have any injuries at that time. She states most significantly she had been experiencing right ankle pain. She states the right ankle pain has subsided and she is experiencing some right knee pain just over the past 3-4 days. Physical Exam: Patient is awake, alert, and oriented 3 Vital signs stable Adequate chest excursion with deep inspiration and expiration; O2 nasal cannula intact Mild firmness to palpation over the right superior lateral portion of the right knee Some generalized warmth of the entire right lower extremity No erythema or obvious signs of infection at the right knee No significant pain today with palpation along the right medial joint line No increased pain with varus or valgus stress of the right knee Small healing bruise over the right superior lateral portion of the right knee which is turning yellow/green Patient is able to perform dorsiflexion and plantarflexion of the right lower extremity without difficulty Neurovascularly intact right lower extremity No pain with palpation along the medial or lateral malleolus of the right ankle Rahul wrap intact over the right knee is removed and reapplied during physical examination Pertinent studies: X-ray of the right knee taken on 06/26/2020: Minor spurring at the medial tibial condyle; no significant degenerative disc disease; probable knee joint effusion X-rays of the right ankle taken on 06/27/2020: Osteopenia; mild degenerative changes at the tibiotalar joint; no acute osseous abnormality Assessment: Right knee pain Mild effusion of the left knee, possible hemarthrosis Generalized weakness bilateral upper extremities and lower extremities Acute urinary tract infection Long-term anticoagulation use with Coumadin Acute urinary tract infection Hypertension Diabetes mellitus Heart disease Obesity with BMI of 41.6 Plan: 1. Patient was discussed with Dr. Poncho Roldan. After physical examination of the patient, reviewing her imaging, and further discussion with the patient, we will currently plan continue conservative treatment at this time. She has been experiencing some increased pain in her right knee over the past couple days. She is known have fallen approximately week ago without any injuries or increased knee pain at that time. She had been experiencing increased right ankle pain which has subsided. Imaging modalities of the right knee and ankle were taken without evidence of fracture or dislocation. She does have some generalized swelling around the right knee but I do not palpate any specific fluid collection. She has a mild firmness to palpation over the right superior lateral portion of the right knee. She has some generalized warmth of the entire right lower extremity. I do not see any significant erythema or obvious signs of infection at the right knee. Yesterday she was wrapped with an Rahul wrap and ice was applied over the right knee. Since that time she feels she has had significant improvement of her right knee pain. She has not expressed any pain along the medial joint line which she had yesterday. She has not been out of bed since yesterday. Patient also states she is been fairly non- weightbearing over the past several months since the outbreak of Covid-19. We're not currently planning for aspiration of the right knee. Patient feels continuous conservative treatment without aspiration of the right knee currently is a good plan of care. We're not planning for a treatment evaluation regards to her right ankle. She is able to perform good active range of motion right ankle without difficulty. She has no pain of the right ankle during physical exam. From an orthopedic standpoint, patient is clear for discharge. We'll plan to have her follow up outpatient basis as needed. If needed, she may call the office at follow-up appointment. She may follow-up with Lan Henriquez PA-C or Dr. Poncho Roldan at [facility] 2. Patient will continue to be seen and examined by medicine for other medical diagnoses 3. Patient currently waiting for consultation with psychology
[2020-06-29] MEDS: GABAPENTIN 300 MG CAP PO SCH ×2 (09:57→20:36)
[2020-06-29] MEDS: CITALOPRAM HYDROBROMIDE 20 MG TAB PO SCH (09:57)
[2020-06-29] MEDS: PROPRANOLOL 40 MG TAB PO SCH ×2 (09:57→20:36)
[2020-06-29] MEDS: FAMOTIDINE 20 MG TAB PO SCH ×2 (09:57→20:36)
[2020-06-29] MEDS: buPROPion XL 300 MG TAB.ER.24H PO SCH (09:57)
--- NOTE | 2020-06-29 11:09 | CDI ---
Documentation Clarification Form Date: 06/29/2020 CDS: Dorothy Burns, CCS, CCDS Admit Date: 06/26/2020 Patient Name: Joyce Coleman Discharge Date: ATTENTION: The Clinical Documentation Specialists (CDI) and [facility] Coding Staff appreciate your assistance in clarifying documentation. Please respond to the clarification below the line at the bottom and electronically sign. The CDI & [facility] Coding staff will review the response and follow-up if needed. Please note: Queries are made part of the Legal Health Record. If you have any questions, please contact the author of this message via ITS. Dear Dr. Vicente Roldan: Per the ED note on 06/26 the patient's imaging showed a right knee effusion. Per the 06/27 History & Physical the patient has swelling in her right knee. Per the 06/28 Othopedic Consult the patient has right knee pain with a mild left knee effusion. History/Risk Factors: Hypertension & Hypertensive Heart Disease with Heart Failure, DM, Obesity w/BMI of 41.6, Former Smoker. Clinical Indicators: Per the 06/26 ED note, the patient was found down at home after falling several days prior. Admitted with Acute UTI, Generalized Weakness & Right knee effusion. Radiology findings: XR right knee: Knee joint effusion. Minor osteoarthritic changes. Treatment: po Tylenol, po Avalon. COCO wrap over right knee for comfort. Possible aspiration of right knee if effusion worsens. In your professional opinion, can you please clarify the laterality of the patient's knee effusion: Right knee effusion Left knee effusion (Last Revision: January 2018) __There is a small effusion at the right knee without obvious instability on exam. MTDD
--- NOTE | 2020-06-29 11:46 | P.PN ---
Subjective Progress Note Date: 06/29/20 This is a 70-year-old female admitted with failure to thrive, increased weakness, medical debility, acute UTI, living in substandard conditions with APS following. Reports right knee pain from recent fall a month ago worsening. Knee x-ray reporting joint effusion. Orthopedic consult in place with recomme ndations pending. Good diet intake, denies nausea vomiting or diarrhea. Denies abdominal pain. Denies chest pain, palpitations or shortness of breath. Afebrile, normal WBC. Significant improvement in INR down to 1.2 from 8.7. Renal ultrasound pending Renal function improving, BUN 19, creatinine 0.79. Blood sugars controlled.VSS, maintaining O2 sats in the 90s on room air. Blood and Urine cultures pending. 06/29/2020 no overnight events.Vital signs stable. Evaluated by psych with recommendations noted. Evaluated by orthopedic surgery, recommendations noted. Afebrile, normal WBC. Maintained on Rocephin. Urine culture reporting E. coli, Proteus mirabilis. Objective - Vital Signs Vital signs: Vital Signs Temp 98.1 F 06/29/20 07:00 Pulse 64 06/29/20 07:00 Resp 20 06/29/20 07:00 BP 125/74 06/29/20 07:00 Pulse Ox 93 L 06/29/20 07:00 Intake & Output 06/28/20 06/29/20 06/29/20 18:59 06:59 18:59 Intake Total 850 1400 Output Total 790 1725 Balance 60 -325 Weight 122.2 kg Intake: IV 200 1400 Sodium Chloride 0.9% 1, 200 1400 000 ml @ 100 mls/hr IV . Q10H [facility] Rx#:[id number] Oral 650 Output: Urine 790 1725 Other: Voiding Method Indwelling Catheter Indwelling Catheter Indwelling Catheter - Exam PHYSICAL EXAM: VITAL SIGNS: As above GENERAL: Sitting up in bed, no acute distress HEENT: Conjunctivae normal. eyes normal. NECK: No JVD. No thyroid enlargement. No LNs, oral mucosa moist CARDIOVASCULAR: S1, S2 regular. No murmur. RESPIRATION: Breath sounds diminished in the bases. No rhonchi or crackles. No bronchial breathing. ABDOMEN: Soft, nontender. No guarding. no masses palpable. No ascites, No hepatosplenomegaly.Bowel sounds heard. LEGS: No edema. no swelling. No calf tenderness PSYCHIATRY: Alert and oriented X3, mood and affect normal. NERVOUS SYSTEM: Cranial N 2-12 grossly normal. Moves all 4 limbs. Diffuse weakness No focal deficits. Strength and sensation grossly intact. Skin: Warm and dry, no rash - Labs CBC & Chem 7: 06/29/20 04:02 06/29/20 04:02 Labs: Abnormal Lab Results - Last 24 Hours (Table) 06/28/20 06/28/20 06/28/20 Range/Units 04:35 16:54 20:27 RBC (3.80-5.40) m/uL Hgb (11.4-16.0) gm/dL Hct (34.0-46.0) % Sodium (137-145) mmol/L Glucose (74-99) mg/dL POC Glucose (mg/dL) 144 H 151 H (75-99) mg/dL Hemoglobin A1c 6.3 H (4.0-6.0) % Total Protein (6.3-8.2) g/dL Albumin (3.5-5.0) g/dL 06/29/20 06/29/20 Range/Units 04:02 04:02 RBC 3.54 L (3.80-5.40) m/uL Hgb 10.6 L (11.4-16.0) gm/dL Hct 32.4 L (34.0-46.0) % Sodium 135 L (137-145) mmol/L Glucose 106 H (74-99) mg/dL POC Glucose (mg/dL) (75-99) mg/dL Hemoglobin A1c (4.0-6.0) % Total Protein 4.9 L (6.3-8.2) g/dL Albumin 2.5 L (3.5-5.0) g/dL Microbiology - Last 24 Hours (Table) 06/26/20 18:27 Urine Culture - Final Urine,Voided Escherichia coli Proteus mirabilis 06/26/20 20:49 Blood Culture - Preliminary Blood No Growth after 48 hours Assessment and Plan Assessment: Acute urinary tract infection, E. coli, Proteus mirabilis reported per culture, present on admission Generalized weakness secondary to above Right Knee increased effusion, possible hemarthrosis Coagulopathy secondary to Coumadin History of DVT/PE on Coumadin Hypertension Diabetes mellitus Heart failure Obesity with BMI of 39 Plan: Continue on current medication regime ,monitoring and sent to make treatment. Transfer to [facility]. with remote telemetry. Maintain supportive care. Social work assisting with discharge planning. The impression and plan of care has been dictated as directed. : I performed a history and examination of this patient, discussed the same with the dictator. I agree with the dictator's note ,documented as a scribe. Any additional findings or plans will be noted.
[2020-06-29] MEDS: ATORVASTATIN 40 MG TAB PO SCH (20:36)
[2020-06-30] MEDS: SODIUM CHLORIDE 0.9% 1,000 ML IV SCH ×2 (05:59→16:55)
[2020-06-30 06:45] LABS: Basophils # (A) 0.1 k/uL (0-0.2); Basophils % (A) 1 %; Eosinophils # (A) 0.3 k/uL (0-0.7); Eosinophils % (A) 4 %; HCT 32.3 % (34.0-46.0); HGB 10.2 gm/dL (11.4-16.0); Lymphocytes # (A) 1.2 k/uL (1.0-4.8); Lymphocytes % (A) 17 %; MCH 28.9 pg (25.0-35.0); MCHC 31.7 g/dL (31.0-37.0); MCV 91.2 fL (80.0-100.0); Monocytes # (A) 0.7 k/uL (0-1.0); Monocytes % (A) 10 %; Neutrophils % (A) 67 %; Platelet Count 293 k/uL (150-450); RBC 3.54 m/uL (3.80-5.40); RDW 13.1 % (11.5-15.5); WBC 7.5 k/uL (3.8-10.6)
[2020-06-30 06:56] LABS: ALT 34 U/L (4-34); AST 47 U/L (14-36); African American GFR (CKD) >90 (>60 ml/min/1.73 sqM); Albumin 2.4 g/dL (3.5-5.0); Alkaline Phosphatase 92 U/L (38-126); Anion Gap 6 mmol/L; Blood Urea Nitrogen 8 mg/dL (7-17); Calcium 8.6 mg/dL (8.4-10.2); Carbon Dioxide 26 mmol/L (22-30); Chloride 103 mmol/L (98-107); Glucose 119 mg/dL (74-99); Non-African American GFR(CKD) >90 (>60 ml/min/1.73 sqM); Potassium 3.7 mmol/L (3.5-5.1); Sodium 135 mmol/L (137-145); Total Bilirubin 0.6 mg/dL (0.2-1.3); Total Protein 4.9 g/dL (6.3-8.2)
[2020-06-30] MEDS: GABAPENTIN 300 MG CAP PO SCH ×2 (08:04→21:04)
[2020-06-30] MEDS: CITALOPRAM HYDROBROMIDE 20 MG TAB PO SCH (08:04)
[2020-06-30] MEDS: FAMOTIDINE 20 MG TAB PO SCH ×2 (08:04→21:03)
[2020-06-30] MEDS: PROPRANOLOL 40 MG TAB PO SCH ×2 (08:08→21:52)
[2020-06-30] MEDS: buPROPion XL 300 MG TAB.ER.24H PO SCH (08:08)
--- NOTE | 2020-06-30 09:02 | P.PN ---
Subjective Progress Note Date: 06/30/20 This is a 70-year-old female admitted with failure to thrive, increased weakness, medical debility, acute UTI, living in substandard conditions with APS following. Reports right knee pain from recent fall a month ago worsening. Knee x-ray reporting joint effusion. Orthopedic consult in place with recomme ndations pending. Good diet intake, denies nausea vomiting or diarrhea. Denies abdominal pain. Denies chest pain, palpitations or shortness of breath. Afebrile, normal WBC. Significant improvement in INR down to 1.2 from 8.7. Renal ultrasound pending Renal function improving, BUN 19, creatinine 0.79. Blood sugars controlled.VSS, maintaining O2 sats in the 90s on room air. Blood and Urine cultures pending. 06/29/2020 no overnight events.Vital signs stable. Evaluated by psych with recommendations noted. Evaluated by orthopedic surgery, recommendations noted. Afebrile, normal WBC. Maintained on Rocephin. Urine culture reporting E. coli, Proteus mirabilis. 06/30/2020 Maintained on IV antibiotics, afebrile, normal WBC. No hematuria, no bleeding. Hemoglobin 10.2, baseline 12-14.Remains off of Coumadin. VSS. Denies chest pain, palpitations or shortness of breath. Knee pain improving. Telemetry sinus bradycardia ( mid 50s) to sinus rhythm. Objective - Vital Signs Vital signs: Vital Signs Temp 97.9 F 06/30/20 04:18 Pulse 61 06/30/20 04:18 Resp 16 06/30/20 04:18 BP 104/65 06/30/20 04:18 Pulse Ox 94 L 06/30/20 04:18 Intake & Output 06/29/20 06/30/20 06/30/20 18:59 06:59 18:59 Intake Total 1200 1160 Output Total 550 1450 Balance 650 -290 Weight 121.5 kg Intake: IV 800 160 Sodium Chloride 0.9% 1, 800 160 000 ml @ 100 mls/hr IV . Q10H [facility] Rx#:[id number] Intake, IV Titration 400 Amount Sodium Chloride 0.9% 1, 400 000 ml @ 100 mls/hr IV . Q10H [facility] Rx#:[id number] Oral 400 600 Output: Urine 550 1450 Other: Voiding Method Indwelling Catheter Indwelling Catheter Indwelling Catheter # Voids 2 - Exam PHYSICAL EXAM: VITAL SIGNS: As above GENERAL: Sitting up in bed, no acute distress HEENT: Conjunctivae normal. eyes normal. NECK: No JVD. No thyroid enlargement.Oral mucosa moist CARDIOVASCULAR: S1, S2 regular. No murmur. RESPIRATION: Breath sounds diminished in the bases. ABDOMEN: Soft, nontender. No guarding. Chronic Right-sided seroma ,otherwise no masses palpable. Positive bowel sounds. LEGS: No edema. no swelling. No calf tenderness. PSYCHIATRY: Alert and oriented X3, mood and affect normal. NERVOUS SYSTEM: Cranial N 2-12 grossly normal. Moves all 4 limbs. Diffuse weakness ,No focal deficits. Strength and sensation grossly intact. Skin: Warm and dry, no rash - Labs CBC & Chem 7: 06/30/20 06:06 06/30/20 06:06 Labs: Abnormal Lab Results - Last 24 Hours (Table) 06/30/20 06/30/20 Range/Units 06:06 06:06 RBC 3.54 L (3.80-5.40) m/uL Hgb 10.2 L (11.4-16.0) gm/dL Hct 32.3 L (34.0-46.0) % Sodium 135 L (137-145) mmol/L Glucose 119 H (74-99) mg/dL AST 47 H (14-36) U/L Total Protein 4.9 L (6.3-8.2) g/dL Albumin 2.4 L (3.5-5.0) g/dL Microbiology - Last 24 Hours (Table) 06/26/20 20:49 Blood Culture - Preliminary Blood No Growth after 72 hours 06/26/20 18:27 Urine Culture - Final Urine,Voided Escherichia coli Proteus mirabilis Assessment and Plan Assessment: Acute urinary tract infection, E. coli, Proteus mirabilis reported per culture, present on admission Acute anemia, etiology unclear, multifactorial, including possible diverticular in a patient with history of diverticulitis in addition to Coumadin toxicity on admission. Generalized weakness secondary to above Right Knee increased effusion, possible hemarthrosis Coumadin toxicity, Hypercoagulopathy secondary to Coumadin, reversed with vitamin K, possibly related to confusion Acute metabolic , toxic encephalopathy secondary to all the above, improved History of DVT/PE on Coumadin Hypertension Diabetes mellitus Heart failure Obesity with BMI of 39 Plan: Continue on current medication regime ,monitoring and sent to make treatment. GI consulted regarding anemia, anticoagulation recommendations. Maintain supportive care. Social work assisting with discharge planning to [facility] subacute rehab. Coronavirus testing pending. The impression and plan of care has been dictated as directed. : I performed a history and examination of this patient, discussed the same with the dictator. I agree with the dictator's note ,documented as a scribe. Any additional findings or plans will be noted.
[2020-06-30 09:35] LABS: Prothrombin Time 10.7 sec (9.0-12.0)
[2020-06-30] MEDS ORDERED: bisacodyL 5 MG TABLET.DR PO STA (14:41)
[2020-06-30] MEDS ORDERED: PEG 3350-NA SULF,BICARB,CL/KCL 4,000 ML BOTTLE PO ONE (14:41)
[2020-06-30] MEDS: ATORVASTATIN 40 MG TAB PO SCH (21:03)
--- NOTE | 2020-06-30 22:47 | P.CONS ---
History of Present Illness - Reason for Consult Consult date: 06/30/20 Anemia Requesting physician: Floyd Wilkes - Chief Complaint weakness and debility - History of Present Illness 70-year-old female with multiple medical comorbidities including hypertension, congestive heart failure and diabetes mellitus who presented for symptoms of weakness and debility. Currently patient is being treated for a urinary tract infection. Patient was found to have a supratherapeutic INR on presentation of 10.06/26/2020. She also has a history of complicated diverticulitis requiring Zhou bowel resection and ostomy formation which has been reversed. She believes her last EGD and colonoscopy were in 2014. Patient has been noting dark colored bowel movements prior to presentation with no gross bright red blood per rectum. Patient was found to have acute fall in her hemoglobin down to 10.2 from 14 on presentation with a WBC 7.5, platelet count 293,000, total bilirubin 0.6, alkaline phosphatase 92,AST 47 and ALT 34. Review of Systems REVIEW OF SYSTEMS: CONSTITUTIONAL: Denies any fevers, chills, weight change but she does report fatigue. CARDIOVASCULAR: Denies any chest pain, palpitations high or low blood pressures RESPIRATORY: Denies any shortness of breath, hemoptysis or cough. GENITOURINARY: No dysuria or hematuria, currently being treated for urinary tract infection. MUSCULOSKELETAL: No weakness reported. SKIN: Denies any new rashes or lesions, jaundice or pallor. PSYCHIATRIC: Denies any depression or anxiety. NEUROLOGY: Denies headache, denies any new focal deficits. EARS/NOSE/THROAT: No recent hearing change, congestion, nasal discharge or sore throat. EYES: No pain in eyes, discharge or change in vision. GASTROINTESTINAL: As per HPI. Past Medical History Past Medical History: Heart Failure, Diabetes Mellitus, Hypertension History of Any Multi-Drug Resistant Organisms: None Reported Past Surgical History: Bowel Resection, Cholecystectomy, Hysterectomy Past Anesthesia/Blood Transfusion Reactions: No Reported Reaction Past Psychological History: No Psychological Hx Reported Smoking Status: Former smoker Past Alcohol Use History: None Reported Past Drug Use History: Unable to Obtain - Past Family History Father Family Medical History: Myocardial Infarction (VT) Mother Family Medical History: Cancer, Congestive Heart Failure (CHF), Dementia Medications and Allergies Home Medications Medication Instructions Recorded Confirmed Type Citalopram Hydrobromide [CeleXA] 40 mg PO DAILY 06/27/20 06/27/20 History Furosemide [Lasix] 20 mg PO BID 06/27/20 06/27/20 History Gabapentin 300 mg PO BID 06/27/20 06/27/20 History Omeprazole 20 mg PO DAILY 06/27/20 06/27/20 History Potassium Chloride [Klor-Con 20] 20 meq PO BID 06/27/20 06/27/20 History Propranolol HCl 40 mg PO BID 06/27/20 06/27/20 History Simvastatin [Zocor] 40 mg PO HS 06/27/20 06/27/20 History Warfarin Sodium 5 mg PO HS 06/27/20 06/27/20 History buPROPion XL [Wellbutrin Xl] 300 mg PO DAILY 06/27/20 06/27/20 History lisinopriL [Prinivil] 20 mg PO BID 06/27/20 06/27/20 History Cefuroxime Axetil [Ceftin] 500 mg PO BID 6 Days #12 tab 06/30/20 Rx Allergies Allergy/AdvReac Type Severity Reaction Status Date / Time Sulfa (Sulfonamide Allergy Unknown Verified 06/27/20 10:29 Antibiotics) Physical Exam Vitals: Vital Signs Temp Pulse Pulse Pulse Resp BP Pulse Ox 06/30/20 12:18 98.2 F 59 L 16 108/69 94 L 06/30/20 04:18 97.9 F 61 16 104/65 94 L 06/29/20 20:35 98.8 F 66 16 114/72 95 06/29/20 19:57 98.0 F 66 118/67 93 L 06/29/20 15:00 97.6 F 65 14 128/76 96 Intake and Output 06/29/20 06/30/20 06/30/20 22:59 06:59 14:59 Intake Total 700 460 Output Total 800 650 Balance -100 -190 Intake: IV 160 Sodium Chloride 0.9% 1, 160 000 ml @ 100 mls/hr IV . Q10H [facility] Rx#:[id number] Intake, IV Titration 400 Amount Sodium Chloride 0.9% 1, 400 000 ml @ 100 mls/hr IV . Q10H [facility] Rx#:[id number] Oral 300 300 Output: Urine 800 650 Other: Voiding Method Indwelling Catheter Indwelling Catheter # Voids 2 Weight 121.5 kg 121.5 kg On physical examination, patient appears comfortable in no apparent distress. HEAD: Normocephalic, atraumatic. EYES: No scleral icterus. No conjunctival injection. MOUTH: No lesions, tongue midline. NECK: Trachea midline, no gross abnormalities. CHEST: Clear to auscultation with no wheezing or rhonchi appreciated. HEART: S1 and S2 appreciated. ABDOMEN: Soft, obese. Bowel sounds are positive. No organomegaly. No guarding or rigidity. EXTREMITIES: No pedal edema. SKIN: No rashes, no jaundice. NEUROLOGIC: Alert and oriented x3. No focal deficits. Results CBC & Chem 7: 06/30/20 06:06 06/30/20 06:06 Labs: Abnormal Lab Results - Last 24 Hours (Table) 06/30/20 06/30/20 Range/Units 06:06 06:06 RBC 3.54 L (3.80-5.40) m/uL Hgb 10.2 L (11.4-16.0) gm/dL Hct 32.3 L (34.0-46.0) % Sodium 135 L (137-145) mmol/L Glucose 119 H (74-99) mg/dL AST 47 H (14-36) U/L Total Protein 4.9 L (6.3-8.2) g/dL Albumin 2.4 L (3.5-5.0) g/dL Microbiology - Last 24 Hours (Table) 06/26/20 20:49 Blood Culture - Preliminary Blood No Growth after 72 hours US - abdomen: report reviewed (no acute findings on retroperitoneal ultrasound) Assessment and Plan (1) Normocytic anemia Narrative/Plan: 70-year-old female with multiple medical comorbidities including prior history of complicated diverticulitisrequiring partial colectomy with ostomy formation which has been reversed presented to the hospital due to failure to thrive and weakness and is currently being treated for urinary tract infection. Patient was found to have an acute fall in her hemoglobin down to 10.2 from 14 on presentation. Normocytic indices. She denies any signs or symptoms of GI bleeding, however she has noted some dark tarry bowel movements suggestive of possible upper GI bleed. Patient believes her last EGD and colonoscopy were in [address] [place] [address]. Etiology of anemia, may be related to GI blood loss from peptic ulcer disease, esophagitis, gastritis, AVMor possible lower GI bleed or other etiology. Current Visit: Yes Status: Acute Code(s): D64.9 - ANEMIA, UNSPECIFIED SNOMED Code(s): 090104652 (2) History of diverticulitis Current Visit: Yes Status: Acute Code(s): Z87.19 - PERSONAL HISTORY OF OTHER DISEASES OF THE DIGESTIVE SYSTEM SNOMED Code(s): 243043985958198 Plan: supportive care Continue Pepcid therapy Clear liquid diet Bowel prep ordered Plan for EGD and colonoscopy tomorrow for further evaluation Anemia laboratory evaluation ordered Continue other medical management per primary team Thank you for allowing us to participate in the care of the patient
[2020-07-01] MEDS: ONDANSETRON 4 MG/2 ML VIAL IVP PRN (00:04)
[2020-07-01] MEDS: SODIUM CHLORIDE 0.9% 1,000 ML IV SCH ×3 (00:05→23:20)
[2020-07-01] MEDS ORDERED: MAGNESIUM CITRATE 296 ML BOTTLE PO ONE (08:19)
[2020-07-01] MEDS: GABAPENTIN 300 MG CAP PO SCH ×2 (08:51→20:57)
[2020-07-01] MEDS: buPROPion XL 300 MG TAB.ER.24H PO SCH (08:51)
[2020-07-01] MEDS: CITALOPRAM HYDROBROMIDE 20 MG TAB PO SCH (08:51)
[2020-07-01] MEDS: PROPRANOLOL 40 MG TAB PO SCH ×2 (08:51→20:56)
[2020-07-01] MEDS: FAMOTIDINE 20 MG TAB PO SCH ×2 (08:51→20:56)
[2020-07-01 09:12] LABS: HCT 36.6 % (34.0-46.0); HGB 11.7 gm/dL (11.4-16.0); Hypochromasia Slight; MCH 29.4 pg (25.0-35.0); MCHC 31.9 g/dL (31.0-37.0); Mean Platelet Volume 7.9; Platelet Count 361 k/uL (150-450); RBC 3.97 m/uL (3.80-5.40); RDW 13.3 % (11.5-15.5); WBC 8.4 k/uL (3.8-10.6)
[2020-07-01 09:20] LABS: Reticulocyte % 2.4 % (0.5-2.0)
[2020-07-01] MEDS ORDERED: PROPOFOL 10 MG/ML 20 ML VIAL IV ONE (14:01)
[2020-07-01] MEDS ORDERED: GLYCOPYRROLATE 0.2 MG/ML 2 ML VIAL ONE (14:01)
[2020-07-01] MEDS ORDERED: LIDOCAINE 1% INJ 10MG/ML (20 ML MDV) ONE (14:01)
[2020-07-01] MEDS ORDERED: KETAMINE 10 MG/ML 20 ML VIAL ONE (14:01)
[2020-07-01] MEDS ORDERED: IV FLUID CONTINUATION 1,000 ML IV ONE ×2 (14:02)
--- NOTE | 2020-07-01 14:18 | P.PN ---
Subjective Progress Note Date: 07/01/20 This is a 70-year-old female admitted with failure to thrive, increased weakness, medical debility, acute UTI, living in substandard conditions with APS following. Reports right knee pain from recent fall a month ago worsening. Knee x-ray reporting joint effusion. Orthopedic consult in place with recomme ndations pending. Good diet intake, denies nausea vomiting or diarrhea. Denies abdominal pain. Denies chest pain, palpitations or shortness of breath. Afebrile, normal WBC. Significant improvement in INR down to 1.2 from 8.7. Renal ultrasound pending Renal function improving, BUN 19, creatinine 0.79. Blood sugars controlled.VSS, maintaining O2 sats in the 90s on room air. Blood and Urine cultures pending. 06/29/2020 no overnight events.Vital signs stable. Evaluated by psych with recommendations noted. Evaluated by orthopedic surgery, recommendations noted. Afebrile, normal WBC. Maintained on Rocephin. Urine culture reporting E. coli, Proteus mirabilis. 06/30/2020 Maintained on IV antibiotics, afebrile, normal WBC. No hematuria, no bleeding. Hemoglobin 10.2, baseline 12-14.Remains off of Coumadin. VSS. Denies chest pain, palpitations or shortness of breath. Knee pain improving. Telemetry sinus bradycardia ( mid 50s) to sinus rhythm. 07/01/2020 NPO, scheduled for both EGD and colonoscopy. This morning has only completed half of her prep, not clear. Reports nausea plus emesis. No bleeding reported, labs pending. Denies chest pain, palpitations or shortness of breath. Objective - Vital Signs Vital signs: Vital Signs Temp 98.0 F 07/01/20 13:00 Pulse 73 07/01/20 13:00 Resp 15 07/01/20 13:00 BP 120/76 07/01/20 13:00 Pulse Ox 93 L 07/01/20 13:00 Intake & Output 06/30/20 07/01/20 07/01/20 18:59 06:59 18:59 Intake Total 160 2000 Output Total 1050 Balance 160 950 Weight 121.5 kg 82.5 kg Intake: Intake, IV Titration 160 400 Amount Sodium Chloride 0.9% 1, 400 000 ml @ 100 mls/hr IV . Q10H [facility] Rx#:[id number] cefTRIAXone 1 gm In 160 Sodium Chloride 0.9% 50 ml @ 100 mls/hr IVPB Q24HR [facility] Rx#:[id number] Oral 1600 Output: Urine 1050 Other: Voiding Method Indwelling Catheter Indwelling Catheter Indwelling Catheter # Bowel Movements 0 1 1 - Exam PHYSICAL EXAM: VITAL SIGNS: As above GENERAL: Sitting up in bed, no acute distress. HEENT: Conjunctivae normal. eyes normal. NECK: No JVD. No thyroid enlargement.Oral mucosa moist CARDIOVASCULAR: S1, S2 regular. No murmur. RESPIRATION: Breath sounds diminished in the bases. ABDOMEN: Soft, nontender. No guarding. Chronic Right-sided seroma ,otherwise no masses palpable. Positive bowel sounds. LEGS: No edema. no swelling. No calf tenderness. PSYCHIATRY: Alert and oriented X3, mood and affect normal. NERVOUS SYSTEM: Cranial N 2-12 grossly normal. Moves all 4 limbs. Diffuse weakness ,No focal deficits. Strength and sensation grossly intact. Skin: Warm and dry, no rash - Labs CBC & Chem 7: 07/01/20 08:33 06/30/20 06:06 Labs: Abnormal Lab Results - Last 24 Hours (Table) 07/01/20 Range/Units 08:33 Retic Count 2.4 H (0.5-2.0) % Microbiology - Last 24 Hours (Table) 06/26/20 20:49 Blood Culture - Preliminary Blood No Growth after 96 hours Assessment and Plan Assessment: Acute urinary tract infection, E. coli, Proteus mirabilis reported per culture, present on admission Acute anemia, etiology unclear, multifactorial, including possible diverticular in a patient with history of diverticulitis in addition to Coumadin toxicity on admission. Generalized weakness secondary to above Right Knee increased effusion, possible hemarthrosis Coumadin toxicity, Hypercoagulopathy secondary to Coumadin, reversed with vitamin K, possibly related to confusion Acute metabolic , toxic encephalopathy secondary to all the above, improved History of DVT/PE on Coumadin Hypertension Diabetes mellitus Heart failure Obesity with BMI of 39 Plan: Continue on current medication regime ,monitoring and sent to make treatment. Staff advised to notify GI for additional prep. Anticoagulation remains on hold. Labs pending. Maintain supportive care. Discharge planning to [facility] subacute rehab. Coronavirus testing- not detected. The impression and plan of care has been dictated as directed. Dr.: I performed a history and examination of this patient, discussed the same with the dictator. I agree with the dictator's note ,documented as a scribe. Any additional findings or plans will be noted.
--- NOTE | 2020-07-01 14:47 | P.PCN ---
Date of Procedure: 07/01/20 Description of Procedure: Brief history: 70-year-old female with multiple medical comorbidities including hypertension, congestive heart failure and diabetes mellitus who presented for symptoms of weakness and debility. Currently patient is being treated for a urinary tract infection. Patient was found to have a supratherapeutic INR on presentation of 10.06/26/2020. She also has a history of complicated diverticulitis requiring Zhou bowel resection and ostomy formation which has been reversed. She believes her last EGD and colonoscopy were in 2014. Patient has been noting dark colored bowel movements prior to presentation with no gross bright red blood per rectum. Patient was found to have acute fall in her hemoglobin down to 10.2 from 14 on presentation with a WBC 7.5, platelet count 293,000, total bilirubin 0.6, alkaline phosphatase 92,AST 47 and ALT 34. Procedure performed: Esophagogastroduodenoscopy with biopsy Colonoscopy incomplete/aborted Estimated blood loss: Minimal. Preoperative diagnosis: Anemia Anesthesia: MAC Procedure: After informed consent was obtained from the patient was brought into the endoscopy unit and IV sedation was administered by anesthesia under continuous monitoring. Initially upper endoscopy was done. The Olympus GF 190 video endoscope was inserted into the mouth and esophagus intubated without any difficulty and was gradually advanced into the stomach and duodenum and carefully examined. The bulb and second part of the duodenum appeared normal, with biopsies taken. The scope was then withdrawn into the stomach adequately insufflated with air and upon careful examination the antrum and body, cardia and fundus appeared normal, except for some mild scattered erythema in the antrum and body suggestive of mild gastritis biopsies taken. Multiple benign- appearing fundic gland polyps noted. The scope was then withdrawn into the esophagus. The GE junction was located at 45 cm to the incisors. It appeared regular with no erythema erosions or ulcerations. Rest of the esophagus appeared normal. Patient tolerated the procedure well. At this time the patient continued to remain sedation. Initial digital rectal examination was normal. Olympus CF 190 video colonoscope was then inserted into the rectum and gradually advanced to the approximate level of the sigmoid colon in the area of prior anastomotic site. Unable to traverse area due to a fixed redundant colon. The scope was then withdrawn with no abnormalities noted. The patient tolerated the procedure well Impression: 1. Mild gastritis. Fundic gland polyps. Biopsies of the antrum and body and duodenum. 2. Incomplete/aborted colonoscopy due to a fixed and redundant colon. Recommendations: Findings of this examination were discussed with the patient. Can consider x- ray barium enema if can be performed today. Otherwise can be performed in the outpatient setting. Okay to resume medications.
--- NOTE | 2020-07-01 15:36 | XR ---
EXAMINATION TYPE: XR abdomen 1V DATE OF EXAM: 07/01/2020 COMPARISON: NONE HISTORY: PRELIM FOR BE TECHNIQUE: Single supine KUB image of the abdomen is obtained FINDINGS: Moderate gaseous distention of large and small bowel. Therefore a barium enema could not be performed at this time. Barium enema can be performed at a later date. No convincing evidence for pneumoperitoneum. No unusual calcifications. The lung bases are clear. The osseous structures are intact. IMPRESSION: 1. As above.
[2020-07-01 16:13] LABS: Prothrombin Time 10.4 sec (9.0-12.0)
[2020-07-01 16:32] LABS: % Iron Saturation 17.03 (12.00-45.00)
[2020-07-01 16:41] LABS: Folate, Serum 4.5 ng/mL
[2020-07-01 16:52] LABS: Ferritin 323.8 ng/mL (10.0-291.0)
[2020-07-01] MEDS: ATORVASTATIN 40 MG TAB PO SCH (20:57)
[2020-07-02 08:04] LABS: INR 1.1 (<1.2)
[2020-07-02] MEDS: PROPRANOLOL 40 MG TAB PO SCH ×2 (09:21→20:38)
[2020-07-02] MEDS: SODIUM CHLORIDE 0.9% 1,000 ML IV SCH ×2 (09:21→17:40)
[2020-07-02] MEDS: FAMOTIDINE 20 MG TAB PO SCH ×2 (09:21→20:38)
[2020-07-02] MEDS: GABAPENTIN 300 MG CAP PO SCH ×2 (09:21→20:38)
[2020-07-02] MEDS: CITALOPRAM HYDROBROMIDE 20 MG TAB PO SCH (09:21)
[2020-07-02] MEDS: buPROPion XL 300 MG TAB.ER.24H PO SCH (09:21)
[2020-07-02] MEDS: FERROUS SULFATE 325 MG TAB PO SCH (11:55)
[2020-07-02] MEDS: ENOXAPARIN 40 MG/0.4 ML SYRINGE SQ SCH (14:28)
[2020-07-02] MEDS ORDERED: WARFARIN 5 MG TAB PO ONE (18:00)
[2020-07-02] MEDS: ATORVASTATIN 40 MG TAB PO SCH (20:38)
--- NOTE | 2020-07-03 00:10 | P.PN ---
Subjective Progress Note Date: 07/02/20 Principal diagnosis: encephalopathy Ms. Coleman is a 70-year-old female with a past medical history of congestive heart failure, diabetes mellitus, hypertension admitted secondary to failure to thrive, increased weakness and medical debility. Patient was also complaining of right knee pain status post fall 1 month ago for which a knee x-ray was obtained. It was showing joint effusion, orthopedics was consulted. She was also found to have an INR of more than 10 at the time of admission, her Coumadin was held. Also there was a significant drop in her hemoglobin from 14-10. Eventually GI was consulted and patient had EGD and colonoscopy done yesterday by Dr. John. EGD was showing mild gastritis, colonoscopy was incomplete and aborted due to fixed and redundant colon. On 07/02/20-patient is comfortably sitting in bed appears to be in no acute distress. As per discussion with nursing staff patient has been refusing physical therapy. Patient denies having any chest pain or palpitations. No cough or difficulty breathing. No fever chills or rigors. No dysuria or hematuria. On reviewing her vitals her blood pressures 134 x 80, temperature 98.1, saturating at 94% on room air. On reviewing her labs her hemoglobin is stable at 10.2rest of the electrolytes within normal limits low albumin of 2.4. Active Medications Acetaminophen (Tylenol Tab) 650 mg PO Q4HR PRN PRN Reason: Fever and/or Mild Pain Hydrocodone Bitart/Acetaminophen ([place] 5-325) 1 each PO Q6HR PRN PRN Reason: Pain Last Admin: 06/28/20 14:45 Dose: 1 each Documented by: Atorvastatin Calcium (Lipitor) 40 mg PO HS [facility] Last Admin: 07/02/20 20:38 Dose: 40 mg Documented by: Bupropion HCl (Wellbutrin Xl) 300 mg PO DAILY [facility] Last Admin: 07/02/20 09:21 Dose: 300 mg Documented by: Citalopram Hydrobromide (Celexa) 40 mg PO DAILY [facility] Last Admin: 07/02/20 09:21 Dose: 40 mg Documented by: Enoxaparin Sodium (Enoxaparin 40 Mg/0.4 Ml Syringe) 40 mg SQ DAILY [facility] Last Admin: 07/02/20 14:28 Dose: 40 mg Documented by: Famotidine (Pepcid) 20 mg PO BID [facility] Last Admin: 07/02/20 20:38 Dose: 20 mg Documented by: Ferrous Sulfate (Ferrous Sulfate 325 Mg Tab) 325 mg PO W/LUNCH [facility] Last Admin: 07/02/20 11:55 Dose: 325 mg Documented by: Gabapentin (Neurontin) 300 mg PO BID [facility] Last Admin: 07/02/20 20:38 Dose: 300 mg Documented by: Sodium Chloride (Saline 0.9%) 1,000 mls @ 100 mls/hr IV .Q10H [facility] Last Admin: 07/02/20 17:40 Dose: Not Given Documented by: Ceftriaxone Sodium 1 gm/ (Sodium Chloride) 50 mls @ 100 mls/hr IVPB Q24HR [facility] Last Admin: 07/02/20 09:20 Dose: 100 mls/hr Documented by: Miscellaneous Information (Warfarin Per Pharmacy) 1 each MISCELLANE DIRECTED PRN; Protocol PRN Reason: Per Protocol Naloxone HCl (Narcan) 0.2 mg IV Q2M PRN PRN Reason: Opioid Reversal Ondansetron HCl (Ondansetron 4 Mg/2 Ml Vial) 4 mg IVP Q6HR PRN PRN Reason: Nausea And Vomiting Last Admin: 07/01/20 00:04 Dose: 4 mg Documented by: Propranolol HCl (Inderal) 40 mg PO BID [facility] Last Admin: 07/02/20 20:38 Dose: 40 mg Documented by: Objective - Vital Signs Vital signs: Vital Signs Temp 98.1 F 07/02/20 11:27 Pulse 59 L 07/02/20 11:27 Resp 12 07/02/20 11:27 BP 134/80 07/02/20 11:27 Pulse Ox 94 L 07/02/20 11:27 Intake & Output 07/01/20 07/02/20 07/02/20 18:59 06:59 18:59 Intake Total 1100 600 50 Output Total 350 Balance 1100 250 50 Weight 96.5 kg Intake: IV 250 600 Sodium Chloride 0.9% 1, 600 000 ml @ 100 mls/hr IV . Q10H [facility] Rx#:[id number] Intake, IV Titration 850 50 Amount Sodium Chloride 0.9% 1, 800 000 ml @ 100 mls/hr IV . Q10H [facility] Rx#:[id number] cefTRIAXone 1 gm In 50 50 Sodium Chloride 0.9% 50 ml @ 100 mls/hr IVPB Q24HR [facility] Rx#:[id number] Output: Urine 350 Other: Voiding Method Indwelling Catheter Indwelling Catheter Indwelling Catheter # Bowel Movements 1 1 - Exam PHYSICAL EXAM: GENERAL: Sitting up in bed, no acute distress. HEENT: Conjunctivae normal. eyes normal. NECK: No JVD. No thyroid enlargement.Oral mucosa moist CARDIOVASCULAR: S1, S2 regular. No murmur. RESPIRATION: Breath sounds diminished in the bases. ABDOMEN: Soft, nontender. No guarding. Chronic Right-sided seroma ,otherwise no masses palpable. Positive bowel sounds. LEGS: No edema. no swelling. No calf tenderness. PSYCHIATRY: Alert and oriented X3, mood and affect normal. NERVOUS SYSTEM: Moves all 4 limbs. Diffuse weakness ,No focal deficits. Strength and sensation grossly intact. Skin: Warm and dry, no rash - Labs CBC & Chem 7: 07/01/20 08:33 06/30/20 06:06 Labs: Abnormal Lab Results - Last 24 Hours (Table) 07/01/20 07/01/20 Range/Units 08:33 08:33 Iron 47 L (50-170) ug/dL Transferrin 171.0 L (204.0-354.0) mg/dL Ferritin 323.8 H (10.0-291.0) ng/mL Vitamin B12 1587.0 H (200.0-944.0) pg/mL Microbiology - Last 24 Hours (Table) 06/26/20 20:49 Blood Culture - Preliminary Blood No Growth after 120 hours Assessment and Plan Assessment: ASSESSMENT Acute urinary tract infection, E. coli, Proteus mirabilis reported per culture, present on admission Acute anemia, etiology unclear, multifactorial, including possible diverticular in a patient with history of diverticulitis in addition to Coumadin toxicity on admission. Generalized weakness secondary to above Right Knee increased effusion, possible hemarthrosis, ORTHO - conservative management Coumadin toxicity Acute metabolic , toxic encephalopathy secondary to all the above, improved History of DVT/PE Hypertension Diabetes mellitus Heart failure Obesity with BMI of 39 Plan: PLAN: Patient to be continued on ceftriaxone for her UTI. She had EGD and colonoscopy done yesterday. Spoke with Dr. John, who was okay for her to be restarted back on Coumadin. We will bridge her with Lovenox, due to her history of DVT and PE x2. Continue with the rest of her current medication regimen. bench worker binding on board for possible placement to subacute rehab. Further recommendations to follow depending on the progress of the patient.
[2020-07-03] MEDS: SODIUM CHLORIDE 0.9% 1,000 ML IV SCH ×3 (05:14→20:33)
[2020-07-03 07:14] LABS: Basophils # (A) 0.1 k/uL (0-0.2); Basophils % (A) 1 %; Eosinophils # (A) 0.3 k/uL (0-0.7); Eosinophils % (A) 5 %; HCT 32.3 % (34.0-46.0); HGB 10.3 gm/dL (11.4-16.0); Lymphocytes # (A) 1.2 k/uL (1.0-4.8); Lymphocytes % (A) 19 %; MCH 29.3 pg (25.0-35.0); MCHC 31.9 g/dL (31.0-37.0); MCV 91.7 fL (80.0-100.0); Mean Platelet Volume 7.7; Monocytes # (A) 0.6 k/uL (0-1.0); Monocytes % (A) 10 %; Neutrophils % (A) 64 %; Platelet Count 294 k/uL (150-450); RBC 3.52 m/uL (3.80-5.40); RDW 13.6 % (11.5-15.5); WBC 6.3 k/uL (3.8-10.6)
[2020-07-03 07:21] LABS: INR 1.1 (<1.2); Prothrombin Time 10.9 sec (9.0-12.0)
[2020-07-03 07:26] LABS: African American GFR (CKD) >90 (>60 ml/min/1.73 sqM); Anion Gap 4 mmol/L; Blood Urea Nitrogen 10 mg/dL (7-17); Calcium 8.2 mg/dL (8.4-10.2); Carbon Dioxide 28 mmol/L (22-30); Chloride 104 mmol/L (98-107); Glucose 127 mg/dL (74-99); Non-African American GFR(CKD) >90 (>60 ml/min/1.73 sqM); Potassium 3.6 mmol/L (3.5-5.1); Sodium 136 mmol/L (137-145)
[2020-07-03] MEDS: ENOXAPARIN 40 MG/0.4 ML SYRINGE SQ SCH (08:57)
[2020-07-03] MEDS: FERROUS SULFATE 325 MG TAB PO SCH (08:57)
[2020-07-03] MEDS: GABAPENTIN 300 MG CAP PO SCH ×2 (08:57→20:33)
[2020-07-03] MEDS: PROPRANOLOL 40 MG TAB PO SCH ×2 (08:57→20:32)
[2020-07-03] MEDS: buPROPion XL 300 MG TAB.ER.24H PO SCH (08:57)
[2020-07-03] MEDS: CITALOPRAM HYDROBROMIDE 20 MG TAB PO SCH (08:57)
[2020-07-03] MEDS: FAMOTIDINE 20 MG TAB PO SCH ×2 (08:57→20:33)
[2020-07-03] MEDS ORDERED: ENOXAPARIN 40 MG/0.4 ML SYRINGE SQ ONE (13:15)
--- NOTE | 2020-07-03 13:54 | P.PN ---
Subjective Progress Note Date: 07/03/20 Principal diagnosis: Encephalopathy Ms. Coleman is a 70-year-old female with a past medical history of congestive heart failure, diabetes mellitus, hypertension admitted secondary to failure to thrive, increased weakness and medical debility. Patient was also complaining of right knee pain status post fall 1 month ago for which a knee x-ray was obtained. It was showing joint effusion, orthopedics was consulted. She was also found to have an INR of more than 10 at the time of admission, her Coumadin was held. Also there was a significant drop in her hemoglobin from 14-10. Eventually GI was consulted and patient had EGD and colonoscopy done yesterday by Dr. John. EGD was showing mild gastritis, colonoscopy was incomplete and aborted due to fixed and redundant colon. On 07/02/20-patient is comfortably sitting in bed appears to be in no acute distress. As per discussion with nursing staff patient has been refusing physical therapy. Patient denies having any chest pain or palpitations. No cough or difficulty breathing. No fever chills or rigors. No dysuria or hematuria. On reviewing her vitals her blood pressures 134 x 80, temperature 98.1, saturating at 94% on room air. On reviewing her labs her hemoglobin is stable at 10.2rest of the electrolytes within normal limits low albumin of 2.4. On 07/03/2020 - patient is lying in the bed comfortably appears to be no acute distress. No acute events reported by nursing staff overnight. Patient still is refusing physical therapy. She denies having any chest pain or palpitations. No cough or difficulty in breathing. No abdominal pain nausea vomiting or diarrhea. Patient denies having any swelling of her lower extremities. Patient has been afebrile for the past 24 hours and saturating at 95% on room air. Labs reviewed and INR of 1.2 today patient's creatinine is trending down it is 1.96 today. Active Medications Acetaminophen (Tylenol Tab) 650 mg PO Q4HR PRN PRN Reason: Fever and/or Mild Pain Hydrocodone Bitart/Acetaminophen ([place] 5-325) 1 each PO Q6HR PRN PRN Reason: Pain Last Admin: 06/28/20 14:45 Dose: 1 each Documented by: Atorvastatin Calcium (Lipitor) 40 mg PO HS [facility] Last Admin: 07/02/20 20:38 Dose: 40 mg Documented by: Bupropion HCl (Wellbutrin Xl) 300 mg PO DAILY [facility] Last Admin: 07/03/20 08:57 Dose: 300 mg Documented by: Citalopram Hydrobromide (Celexa) 40 mg PO DAILY [facility] Last Admin: 07/03/20 08:57 Dose: 40 mg Documented by: Enoxaparin Sodium (Enoxaparin 80 Mg/0.8 Ml Syringe) 80 mg SQ Q12HR [facility] Famotidine (Pepcid) 20 mg PO BID [facility] Last Admin: 07/03/20 08:57 Dose: 20 mg Documented by: Ferrous Sulfate (Ferrous Sulfate 325 Mg Tab) 325 mg PO W/LUNCH [facility] Last Admin: 07/03/20 08:57 Dose: 325 mg Documented by: Gabapentin (Neurontin) 300 mg PO BID [facility] Last Admin: 07/03/20 08:57 Dose: 300 mg Documented by: Sodium Chloride (Saline 0.9%) 1,000 mls @ 100 mls/hr IV .Q10H [facility] Last Admin: 07/03/20 10:55 Dose: Not Given Documented by: Ceftriaxone Sodium 1 gm/ (Sodium Chloride) 50 mls @ 100 mls/hr IVPB Q24HR [facility] Last Admin: 07/03/20 08:57 Dose: 100 mls/hr Documented by: Miscellaneous Information (Warfarin Per Pharmacy) 1 each MISCELLANE DIRECTED PRN; Protocol PRN Reason: Per Protocol Naloxone HCl (Narcan) 0.2 mg IV Q2M PRN PRN Reason: Opioid Reversal Ondansetron HCl (Ondansetron 4 Mg/2 Ml Vial) 4 mg IVP Q6HR PRN PRN Reason: Nausea And Vomiting Last Admin: 07/01/20 00:04 Dose: 4 mg Documented by: Propranolol HCl (Inderal) 40 mg PO BID [facility] Last Admin: 07/03/20 08:57 Dose: 40 mg Documented by: Warfarin Sodium (Warfarin 5 Mg Tab) 5 mg PO ONCE@1800 ONE Stop: 07/03/20 18:01 Objective - Vital Signs Vital signs: Vital Signs Temp 97.7 F 07/03/20 12:09 Pulse 61 07/03/20 12:09 Resp 18 07/03/20 12:09 BP 135/72 07/03/20 12:09 Pulse Ox 96 07/03/20 12:09 Intake & Output 07/02/20 07/03/20 07/03/20 18:59 06:59 18:59 Intake Total 50 120 Output Total 1625 Balance 50 -1505 Weight 96.5 kg Intake: Intake, IV Titration 50 Amount cefTRIAXone 1 gm In 50 Sodium Chloride 0.9% 50 ml @ 100 mls/hr IVPB Q24HR [facility] Rx#:[id number] Oral 120 Output: Urine 1625 Other: Voiding Method Indwelling Catheter Indwelling Catheter Indwelling Catheter # Bowel Movements 1 - Exam PHYSICAL EXAM: GENERAL: Sitting up in bed, no acute distress. HEENT: Conjunctivae normal. eyes normal. NECK: No JVD. No thyroid enlargement.Oral mucosa moist CARDIOVASCULAR: S1, S2 regular. No murmur. RESPIRATION: Breath sounds diminished in the bases. ABDOMEN: Soft, nontender. No guarding. Chronic Right-sided seroma ,otherwise no masses palpable. Positive bowel sounds. LEGS: No edema. no swelling. No calf tenderness. PSYCHIATRY: Alert and oriented X 2- 3, mood and affect normal. NERVOUS SYSTEM: Moves all 4 limbs. Diffuse weakness ,No focal deficits. Strength and sensation grossly intact. Skin: Warm and dry, no rash - Labs CBC & Chem 7: 07/03/20 06:35 07/03/20 06:35 Labs: Abnormal Lab Results - Last 24 Hours (Table) 07/03/20 07/03/20 Range/Units 06:35 06:35 RBC 3.52 L (3.80-5.40) m/uL Hgb 10.3 L (11.4-16.0) gm/dL Hct 32.3 L (34.0-46.0) % Sodium 136 L (137-145) mmol/L Glucose 127 H (74-99) mg/dL Calcium 8.2 L (8.4-10.2) mg/dL Microbiology - Last 24 Hours (Table) 06/26/20 20:49 Blood Culture - Final Blood No Growth after 144 hours Assessment and Plan Assessment: ASSESSMENT Acute urinary tract infection, E. coli, Proteus mirabilis reported per culture, present on admission Acute anemia, etiology unclear, multifactorial, including possible diverticular in a patient with history of diverticulitis in addition to Coumadin toxicity on admission. Generalized weakness secondary to above Right Knee increased effusion, possible hemarthrosis, ORTHO - conservative management Coumadin toxicity Acute metabolic , toxic encephalopathy secondary to all the above, improved History of DVT/PE Hypertension Diabetes mellitus Heart failure Obesity with BMI of 39 Plan: PLAN: Patient to be continued on ceftriaxone for her UTI. She had EGD and colonoscopy , results reviewed. We will bridge her with Lovenox, due to her history of DVT and PE x2. PT and INR gradually trending up . Continue with the rest of her current medication regimen. dredge worker on board for possible placement to subacute rehab. Further recommendations to follow depending on the progress of the patient.
[2020-07-03] MEDS ORDERED: WARFARIN 5 MG TAB PO ONE (18:00)
--- NOTE | 2020-07-03 20:09 | P.PN ---
Subjective Progress Note Date: 07/03/20 Principal diagnosis: normocytic anemia the patient is seen lying in bed today tolerating diet. No signs or symptoms of bleeding. No abdominal pain reported. Objective - Vital Signs Vital signs: Vital Signs Temp 97.8 F 07/03/20 05:06 Pulse 56 L 07/03/20 05:06 Resp 16 07/03/20 05:06 BP 137/84 07/03/20 05:06 Pulse Ox 94 L 07/03/20 05:06 Intake & Output 07/02/20 07/03/20 07/03/20 18:59 06:59 18:59 Intake Total 50 120 Output Total 1625 Balance 50 -1505 Weight 96.5 kg Intake: Intake, IV Titration 50 Amount cefTRIAXone 1 gm In 50 Sodium Chloride 0.9% 50 ml @ 100 mls/hr IVPB Q24HR [facility] Rx#:[id number] Oral 120 Output: Urine 1625 Other: Voiding Method Indwelling Catheter Indwelling Catheter Indwelling Catheter # Bowel Movements 1 - Exam On physical examination, patient appears comfortable in no apparent distress. HEAD: Normocephalic, atraumatic. EYES: No scleral icterus. No conjunctival injection. MOUTH: No lesions, tongue midline. NECK: Trachea midline, no gross abnormalities. ABDOMEN: Soft, obese. Bowel sounds are positive. No organomegaly. No guarding or rigidity. EXTREMITIES: No pedal edema. SKIN: No rashes, no jaundice. NEUROLOGIC: Alert and oriented x3. No focal deficits. - Labs CBC & Chem 7: 07/03/20 06:35 07/03/20 06:35 Labs: Abnormal Lab Results - Last 24 Hours (Table) 07/03/20 07/03/20 Range/Units 06:35 06:35 RBC 3.52 L (3.80-5.40) m/uL Hgb 10.3 L (11.4-16.0) gm/dL Hct 32.3 L (34.0-46.0) % Sodium 136 L (137-145) mmol/L Glucose 127 H (74-99) mg/dL Calcium 8.2 L (8.4-10.2) mg/dL Microbiology - Last 24 Hours (Table) 06/26/20 20:49 Blood Culture - Final Blood No Growth after 144 hours Assessment and Plan (1) Normocytic anemia Narrative/Plan: 70-year-old female with multiple medical comorbidities including prior history of complicated diverticulitisrequiring partial colectomy with ostomy formation which has been reversed presented to the hospital due to failure to thrive and weakness and is currently being treated for urinary tract infection. Patient was found to have an acute fall in her hemoglobin down to 10.2 from 14 on presentation. Normocytic indices. She denies any signs or symptoms of GI blee ding, however she has noted some dark tarry bowel movements suggestive of possible upper GI bleed. Patient believes her last EGD and colonoscopy were in [address] [place] [address]. EGD with findings of mild gastritis and colonoscopy incomplete secondary to redundant colon and prior surgery with no source of bleeding found. Current Visit: Yes Status: Acute Code(s): D64.9 - ANEMIA, UNSPECIFIED SNOMED Code(s): 879004951 (2) History of diverticulitis Current Visit: Yes Status: Acute Code(s): Z87.19 - PERSONAL HISTORY OF OTHER DISEASES OF THE DIGESTIVE SYSTEM SNOMED Code(s): 625113097133438 Plan: supportive care Continue Pepcid therapy okay for diet Anemia laboratory evaluation ordered, with mild iron deficiency noted and iron supplements started Continue other medical management per primary team okay to resume anticoagulation therapy Patient and perform x-ray barium enema after discharge in the outpatient setting Thank you for allowing us to participate in the care of the patient, the GI service will stand by, please call us back with any questions or concerns
[2020-07-03] MEDS: ATORVASTATIN 40 MG TAB PO SCH (20:32)
[2020-07-03] MEDS: ENOXAPARIN 80 MG/0.8 ML SYRINGE SQ SCH (20:32)
[2020-07-04 06:01] LABS: INR 1.2 (<1.2); Prothrombin Time 12.5 sec (9.0-12.0)
[2020-07-04] MEDS: ONDANSETRON 4 MG/2 ML VIAL IVP PRN (07:56)
[2020-07-04] MEDS: CITALOPRAM HYDROBROMIDE 20 MG TAB PO SCH (07:58)
[2020-07-04] MEDS: GABAPENTIN 300 MG CAP PO SCH (07:58)
[2020-07-04] MEDS: FAMOTIDINE 20 MG TAB PO SCH (07:58)
[2020-07-04] MEDS: ENOXAPARIN 80 MG/0.8 ML SYRINGE SQ SCH (07:59)
[2020-07-04] MEDS: PROPRANOLOL 40 MG TAB PO SCH (07:59)
[2020-07-04] MEDS: FERROUS SULFATE 325 MG TAB PO SCH (07:59)
[2020-07-04] MEDS: buPROPion XL 300 MG TAB.ER.24H PO SCH (08:00)
[2020-07-04] MEDS: SODIUM CHLORIDE 0.9% 1,000 ML IV SCH (09:26)
--- NOTE | 2020-07-04 09:56 | P.DS ---
Providers Date of admission: 06/26/20 21:08 Expected date of discharge: 07/04/20 Attending physician: Floyd Wilkes Consults: 06/27/20 02:25 Consult Physician Stat Consulting Provider: Rasheed Sheldon Consult Reason/Comments: petitioned Do you want consulting provider notified?: Yes, Notify in am 06/27/20 19:25 Consult Physician Urgent Consulting Provider: Jo-Ann Roldan Consult Reason/Comments: right knee effusion , possible hematoma Do you want consulting provider notified?: Yes 06/30/20 08:37 Consult Physician Routine Consulting Provider: Wesley John Consult Reason/Comments: Anemia Do you want consulting provider notified?: Yes Primary care physician: Floyd Wilkes Hospital Course: Final Diagnoses: Acute urinary tract infection, E. coli, Proteus mirabilis reported per culture, present on admission Acute anemia, etiology unclear, multifactorial, including possible diverticular in a patient with history of diverticulitis in addition to Coumadin toxicity on admission. EGD reportedly mild gastritis, colonoscopy aborted secondary to fixed, redundant colon Generalized weakness secondary to above Right Knee increased effusion, possible hemarthrosis Coumadin toxicity, Hypercoagulopathy secondary to Coumadin, reversed with vitamin K, possibly related to confusion Acute metabolic , toxic encephalopathy secondary to all the above, improved History of DVT/PE on Coumadin Hypertension Diabetes mellitus Heart failure Obesity with BMI of 39 Hospital course:This is a 70-year-old female admitted with failure to thrive, increased weakness, medical debility, acute UTI, living in substandard conditions with APS following. Reports right knee pain from recent fall a month ago worsening. Knee x-ray reporting joint effusion. Orthopedic consult in place with recommendations pending. Good diet intake, denies nausea vomiting or diarrhea. Denies abdominal pain. Denies chest pain, palpitations or shortness of breath. Afebrile, normal WBC. Significant improvement in INR down to 1.2 from 8.7. Renal ultrasound pending Renal function improving, BUN 19, creatinine 0.79. Blood sugars controlled.VSS, maintaining O2 sats in the 90s on room air. Blood and Urine cultures pending. 06/29/2020 no overnight events.Vital signs stable. Evaluated by psych with recommendations noted. Evaluated by orthopedic surgery, recommendations noted. Afebrile, normal WBC. Maintained on Rocephin. Urine culture reporting E. coli, Proteus mirabilis. 06/30/2020 Maintained on IV antibiotics, afebrile, normal WBC. No hematuria, no bleeding. Hemoglobin 10.2, baseline 12-14.Remains off of Coumadin. VSS. Denies chest pain, palpitations or shortness of breath. Knee pain improving. Telemetry sinus bradycardia ( mid 50s) to sinus rhythm. 07/01/2020 NPO, scheduled for both EGD and colonoscopy. This morning has only completed half of her prep, not clear. Reports nausea plus emesis. No bleeding reported, labs pending. Denies chest pain, palpitations or shortness of breath. Colonoscopy aborted secondary to fixed, redundant colon. EGD performed, reporting mild gastritis, fundic gland polyps, biopsies obtained. Tolerated procedure well. Cleared by GI to resume anticoagulation . Bridged with Lovenox. INR currently 1.2 Hemoglobin remained stable. No signs or symptoms of bleeding. No abdominal pain. Denies chest pain, palpitations or shortness of breath. Cleared by all consults for discharge. Patient will be discharged to [facility] subacute rehab today in a stable condition with guarded prognosis. The impression and plan of care has been dictated as directed. : I performed a history and examination of this patient, discussed the same with the dictator. I agree with the dictator's note ,documented as a scribe. Any additional findings or plans will be noted. Patient Condition at Discharge: Stable Plan - Discharge Summary Discharge Rx Participant: No New Discharge Prescriptions: New Atorvastatin [Lipitor] 40 mg PO HS tab Enoxaparin [Lovenox] 80 mg SQ Q12HR #6 syringe Famotidine [Pepcid] 20 mg PO BID tab Cefuroxime Axetil [Ceftin] 500 mg PO BID 3 Days #6 tab Continue Warfarin Sodium 5 mg PO HS Simvastatin [Zocor] 40 mg PO HS Propranolol HCl 40 mg PO BID Potassium Chloride [Klor-Con 20] 20 meq PO BID Omeprazole 20 mg PO DAILY Furosemide [Lasix] 20 mg PO BID Citalopram Hydrobromide [CeleXA] 40 mg PO DAILY buPROPion XL [Wellbutrin XL] 300 mg PO DAILY Gabapentin 300 mg PO BID #6 cap Changed lisinopriL [Prinivil] 10 mg PO BID #0 Discharge Medication List Citalopram Hydrobromide [CeleXA] 40 mg PO DAILY 06/27/20 [History] Furosemide [Lasix] 20 mg PO BID 06/27/20 [History] Omeprazole 20 mg PO DAILY 06/27/20 [History] Potassium Chloride [Klor-Con 20] 20 meq PO BID 06/27/20 [History] Propranolol HCl 40 mg PO BID 06/27/20 [History] Simvastatin [Zocor] 40 mg PO HS 06/27/20 [History] Warfarin Sodium 5 mg PO HS 06/27/20 [History] buPROPion XL [Wellbutrin XL] 300 mg PO DAILY 06/27/20 [History] Atorvastatin [Lipitor] 40 mg PO HS tab 07/04/20 [Rx] Cefuroxime Axetil [Ceftin] 500 mg PO BID 3 Days #6 tab 07/04/20 [Rx] Enoxaparin [Lovenox] 80 mg SQ Q12HR #6 syringe 07/04/20 [Rx] Famotidine [Pepcid] 20 mg PO BID tab 07/04/20 [Rx] Gabapentin 300 mg PO BID #6 cap 07/04/20 [Rx] lisinopriL [Prinivil] 10 mg PO BID #0 07/04/20 [Rx] Follow up Appointment(s)/Referral(s): Floyd Wilkes DO [Primary Care Provider] - 1-2 days Lan Henriquez PAC [PHYSICIAN AIRFIELD OPERATIONS SPECIALIST] - As Needed (Patient may follow-up with Lan Henriquez PA-C or Dr. Poncho Roldan at [facility] on as-needed basis following discharge. )
[2020-07-04 11:55] VITALS: BP 146/80; PULSE 57; RESP 17; TEMP 98.5
--- NOTE | 2020-07-04 12:30 | ECHOF ---
Referral Reason:lv fx MEASUREMENTS -------- HEIGHT: 170.2 cm WEIGHT: 94.8 kg BP: 135/80 RVIDd: 3.8 cm (< 3.3) IVSd: 1.3 cm (0.6 - 1.1) LVIDd: 4.9 cm (3.9 - 5.3) LVPWd: 1.2 cm (0.6 - 1.1) IVSs: 1.7 cm LVIDs: 2.9 cm LVPWs: 1.7 cm LAESV Index (A-L): 36.18 ml/m Ao Diam: 3.4 cm (2.0 - 3.7) AV Cusp: 1.5 cm (1.5 - 2.6) MV EXCURSION: 15.243 mm (> 18.000) MV EF SLOPE: 101 mm/s (70 - 150) EPSS: 0.5 cm MV E Ananda: 1.22 m/s MV DecT: 182 ms MV A Ananda: 0.86 m/s MV E/A Ratio: 1.42 AV maxP.80 mmHg AV meanP.48 mmHg RAP: 5.00 mmHg RVSP: 32.44 mmHg FINDINGS -------- This was a technically difficult study with suboptimal views. The left ventricular size is normal. There is mild concentric left ventricular hypertrophy. Overa ll left ventricular systolic function is normal with, an EF between 55 - 60 %. The right ventricle is mild to moderately enlarged. LA is moderately dilated 34-39 ml/m2 The right atrium was not well visualized. 5.0mg of Lumason was utilized for enhancement of images Interatrial and interventricular septum intact. There is mild aortic valve sclerosis. Trace to mild aortic regurgitation. There is mild aortic st enosis present. Peak/mean gradient across the Aortic Valve is 21.80mmHg / 10.48mmHg. Mild mitral annular calcification present. Muvq-oh-zqrdbssp mitral regurgitation is present. Mild tricuspid regurgitation present. Right ventricular systolic pressure is normal at < 35 mmHg. The right ventricular systolic pressure, as measured by Doppler, is 32.44mmHg. The pulmonic valve was not well visualized. The aortic root size is normal. IVC Not well visulized. There is a trivial pericardial effusion present. CONCLUSIONS -------- 1. There is mild concentric left ventricular hypertrophy. 2. Overall left ventricular systolic function is normal with, an EF between 55 - 60 %. 3. The right ventricle is mild to moderately enlarged. 4. LA is moderately dilated 34-39 ml/m2 5. There is mild aortic valve sclerosis. 6. Trace to mild aortic regurgitation. 7. There is mild aortic stenosis present. 8. Peak/mean gradient across the Aortic Valve is 21.80mmHg / 10.48mmHg. 9. Mild mitral annular calcification present. 10. Lzan-qk-owvqhnfr mitral regurgitation is present. 11. Mild tricuspid regurgitation present. 12. There is a trivial pericardial effusion present. RESTAURANT AREA MANAGER: Jessica Smith RDCS
[2020-07-04 13:21] VITALS: BMI 32.8
[2020-07-04] MEDS ORDERED: WARFARIN 7.5 MG TAB PO ONE (18:00)
--- NOTE | 2020-07-05 14:44 | CDI ---
Documentation Clarification Form Date: 07/05/20 From: Citlaly Montilla CCS Phone: If you have a question about this query, please contact Zainab Kaiser, Wall Washer at [phone] between 8am and 5pm. Admit Date: 06/26/20 Discharge Date:07/04/20 Patient Name: Joyce Sanchez Visit Number: [id number] ATTENTION: The Clinical Documentation Specialists (CDI) and [facility] Coding Staff appreciate your assistance in clarifying documentation. Please respond to the clarification below the line at the bottom and electronically sign. The CDI & [facility] Coding staff will review the response and follow-up if needed. Please note: Queries are made part of the Legal Health Record. If you have any questions, please contact the author of this message via ITS. Dear Dr. Wilkes, Wound Care Assessment and Dietary Consult document pressure ulcer, bilateral sacrum. Wound Care assessment documents beginning 06/28- Pressure injury bilateral sacrum deep tissue injury Wound Care Assessment documents beginning 07/01- Pressure injury bilateral sacrum Stage II History/Risk Factors: UTI, Morbid Obesity, DM, HTN, Hx Falls Clinical Indicators: Sacral injury Location: Bilateral sacrum Treatment: Medicated gel and ointment Elements for accurate and compliant documentation of an ulcer: *The location/laterality of the ulcer *Etiology (decubitus/pressure, diabetic, PVD) *Stage I-IV, Unstageable, Suspected Deep Tissue Injury (To the deepest stage) *If the ulcer was present at admission (POA) or occurred after admission In your professional opinion, can you please clarify the diagnosis, for sacral ulcer: Deep Tissue Pressure Injury POA Stage II Pressure injury POA Progression from Deep Tissue to Stage II Other condition, please specify Unable to determine Progression from Deep Tissue to Stage II MTDD
--- NOTE | 2020-07-26 09:08 | CDI ---
Documentation Clarification Form Date: 07/26/20 From: Citlaly Montilla CCS Phone: If you have a question about this query, please contact Zainab Kaiser, Mosaic Technician at [phone] between 8am and 5pm. Admit Date: 06/26/20 Discharge Date: 07/04/20 Patient Name: Joyce Coleman Visit Number: [id number] ATTENTION: The Clinical Documentation Specialists (CDI) and [facility] Coding Staff appreciate your assistance in clarifying documentation. Please respond to the clarification below the line at the bottom and electronically sign. The CDI & [facility] Coding staff will review the response and follow-up if needed. Please note: Queries are made part of the Legal Health Record. If you have any questions, please contact the author of this message via ITS. Dear Dr. Wilkes, CHF is documented in the H&P, Consult, ED. History/Risk Factors: Morbid obesity, HTN, DM Clinical Indicators: Heart Failure VS/Pulse OX: BP 106/79, RR 16, NM 86, O2 Sat 93 BNP: 123 Echocardiogram Results: The left ventricular size is normal.There is mild concentric left ventricular hypertrophy.Overall left ventricular systolic function is normal with, an EF between 55 - 60 %. Chest X Ray: No active cardiopulmonary disease.Cardiomegaly. Treatment: Lasix 20 mg PO BID In your professional opinion, can you please clarify the acuity and type of CHF if known? Systolic Heart Failure: Acute Chronic Acute on Chronic Diastolic Heart Failure: Acute Chronic Acute on Chronic Systolic & Diastolic Heart Failure: Acute Chronic Acute on Chronic Heart Failure Unable to Determine Other, please specify chronic diastolic CHF MTDD
== END 2020-07-04 17:02 | DRG 689 ==
LOC: EC 17:29 → 2SICU 21:08 → 6NMEDSUR 06-29 16:06
PROVIDERS: ADMIT Family Medicine; ATTEND Family Medicine
PROC: 0DJD8ZZ Inspection of Lower Intestinal Tract, Via Natural or Artificial Opening Endoscopic (ICD-10-PCS; 2020-07-01)
PROC: 0DB98ZX Excision of Duodenum, Via Natural or Artificial Opening Endoscopic, Diagnostic (ICD-10-PCS; principal; 2020-07-01 13:40)
PROC: 0DB78ZX Excision of Stomach, Pylorus, Via Natural or Artificial Opening Endoscopic, Diagnostic (ICD-10-PCS; 2020-07-01 13:40)
DX: N39.0 Urinary tract infection, site not specified (principal); G92 Toxic encephalopathy; K57.31 Diverticulosis of large intestine without perforation or abscess with bleeding; D68.9 Coagulation defect, unspecified; Q43.8 Other specified congenital malformations of intestine; D62 Acute posthemorrhagic anemia; M25.061 Hemarthrosis, right knee; Z68.41 Body mass index [BMI] 40.0-44.9, adult; I50.32 Chronic diastolic (congestive) heart failure; Z20.828 Contact with and (suspected) exposure to other viral communicable diseases; L89.156 Pressure-induced deep tissue damage of sacral region; L89.152 Pressure ulcer of sacral region, stage 2; R62.7 Adult failure to thrive; I50.9 Heart failure, unspecified; I11.0 Hypertensive heart disease with heart failure; E11.9 Type 2 diabetes mellitus without complications; E66.01 Morbid (severe) obesity due to excess calories; E86.0 Dehydration; R31.9 Hematuria, unspecified; M25.461 Effusion, right knee; R74.8 Abnormal levels of other serum enzymes; M19.90 Unspecified osteoarthritis, unspecified site; R00.1 Bradycardia, unspecified; F32.9 Major depressive disorder, single episode, unspecified; F42.9 Obsessive-compulsive disorder, unspecified; M85.871 Other specified disorders of bone density and structure, right ankle and foot; B96.20 Unspecified Escherichia coli [E. coli] as the cause of diseases classified elsewhere; R40.2142 Coma scale, eyes open, spontaneous, at arrival to emergency department; K29.70 Gastritis, unspecified, without bleeding; K31.7 Polyp of stomach and duodenum; T45.515A Adverse effect of anticoagulants, initial encounter; R40.2362 Coma scale, best motor response, obeys commands, at arrival to emergency department; R40.2252 Coma scale, best verbal response, oriented, at arrival to emergency department; W19.XXXA Unspecified fall, initial encounter; Z53.20 Procedure and treatment not carried out because of patient's decision for unspecified reasons; Z79.01 Long term (current) use of anticoagulants; Z71.3 Dietary counseling and surveillance; Z79.899 Other long term (current) drug therapy; Z90.49 Acquired absence of other specified parts of digestive tract; Z90.710 Acquired absence of both cervix and uterus; Z86.718 Personal history of other venous thrombosis and embolism; Z86.711 Personal history of pulmonary embolism; Z87.19 Personal history of other diseases of the digestive system; Z87.891 Personal history of nicotine dependence; Z88.2 Allergy status to sulfonamides; Z82.49 Family history of ischemic heart disease and other diseases of the circulatory system; Z82.0 Family history of epilepsy and other diseases of the nervous system; Z80.9 Family history of malignant neoplasm, unspecified
CPT/HCPCS: 36415; 43239; 45378; 51702; 71046; 74018; 76770; 80048; 80053; 81001; 82550; 82607; 82728; 82746; 83036; 83540; 83550; 83605; 83880; 84466; 84484; 85025; 85027; 85045; 85610; 85730; 87040; 87077; 87086; 87186; 88305; 93005; 93306; 96361; 96374; 99285

== ENCOUNTER 2021-03-15 06:34 | Day surgery (SDC) | payer MEDICARE, BC, OTHER ==
[2021-03-14 12:12] VITALS: BMI 36.9
--- NOTE | 2021-03-14 18:57 | P.GSHP ---
History of Present Illness H&P Date: 03/14/21 71 yo female, resident of [facility] whom I saw at [facility] several weeks ago for an obstructing stone on the right, uti with sepsis. sHe had a right double j catheter placed at the time. She was to have the stone and stent removed a few weeks ago but had anothere episode of sepsis. SHe has subsequently been treated and cleared by Dr Malik She comes for right ureteroscopy with laser litho stone and stent removal - Constitutional Constitutional: Denies chills, Denies fever - EENT Eyes: denies blurred vision, denies pain Ears, nose, mouth and throat: Denies headache, Denies sore throat - Cardiovascular Cardiovascular: Denies chest pain, Denies shortness of breath - Respiratory Respiratory: Denies cough, Denies 7 - Gastrointestinal Gastrointestinal: Denies abdominal pain, Denies diarrhea, Denies nausea, Denies vomiting - Genitourinary (Female) Genitourinary: Denies dysuria, Denies hematuria - Genitourinary (Male) Genitourinary: Denies dysuria, Denies hematuria - Musculoskeletal Musculoskeletal: Denies myalgias - Integumentary Integumentary: Denies pruritus, Denies rash - Neurological Neurological: Denies numbness, Denies weakness - Psychiatric Psychiatric: Denies anxiety, Denies depression - Endocrine Endocrine: Denies fatigue, Denies weight change Past Medical History Past Medical History: Atrial Fibrillation, Heart Failure, Diabetes Mellitus, GERD/Reflux, Hypertension, Renal Disease, Respiratory Disorder, Skin Disorder Additional Past Medical History / Comment(s): excoriation to abd. skin folds,groin & buttocks but nothing open per nurse Bing, current indwelling catheter & being tx. for UTI, kidney stones, essential tremors/Parkinson's from med. record from [facility] History of Any Multi-Drug Resistant Organisms: None Reported Past Surgical History: Bowel Resection, Cholecystectomy, Hysterectomy Additional Past Surgical History / Comment(s): nurse couldn't confirm her surgical hx. Past Anesthesia/Blood Transfusion Reactions: No Reported Reaction Smoking Status: Former smoker - Past Family History Father Family Medical History: Myocardial Infarction (SC) Mother Family Medical History: Cancer, Congestive Heart Failure (CHF), Dementia Medications and Allergies Home Medications Medication Instructions Recorded Confirmed Type Citalopram Hydrobromide [CeleXA] 20 mg PO DAILY 06/27/20 03/14/21 History Omeprazole 20 mg PO DAILY 06/27/20 03/14/21 History buPROPion XL [Wellbutrin XL] 300 mg PO DAILY 06/27/20 03/14/21 History Atorvastatin [Lipitor] 40 mg PO HS tab 07/04/20 03/14/21 Rx Ferrous Sulfate [Iron (65 MG 325 mg PO W/LUNCH tab 07/04/20 03/14/21 Rx Elemental)] Acetaminophen [Tylenol] 650 mg PO Q6H PRN 03/14/21 03/14/21 History Ammonium Lactate Cream [Lac-Hydrin 1 applic TOPICAL BID PRN 03/14/21 03/14/21 History 12% Cream] Apixaban [Eliquis] 5 mg PO BID 03/14/21 03/14/21 History Ascorbic Acid [Vitamin C] 500 mg PO DAILY 03/14/21 03/14/21 History Budesonide [Pulmicort] 0.5 mg INHALATION BID 03/14/21 03/14/21 History Carbidopa-Levodopa 25-100 mg 1 each PO TID 03/14/21 03/14/21 History [Sinemet 25-100] Cephalexin [Keflex] 500 mg PO Q8HR 03/14/21 03/14/21 History Cyanocobalamin (Vitamin B-12) 1,000 mcg PO DAILY 03/14/21 03/14/21 History [Vitamin B-12] Insulin Glargine [Lantus] 5 unit SQ HS 03/14/21 03/14/21 History Ipratropium-Albuterol Nebulize 3 ml INHALATION QID PRN 03/14/21 03/14/21 History [Duoneb 0.5 mg-3 mg/3 ml Soln] Magnesium 400 mg PO DAILY 03/14/21 03/14/21 History Melatonin 5 mg PO HS 03/14/21 03/14/21 History Metoprolol Tartrate [Lopressor] 12.5 mg PO BID 03/14/21 03/14/21 History Multivitamins, Thera [Multivitamin 1 tab PO DAILY 03/14/21 03/14/21 History (formulary)] Sennosides [Senokot] 8.6 mg PO BID 03/14/21 03/14/21 History bisacodyL [Bisacodyl] 10 mg RECTAL DAILY PRN 03/14/21 03/14/21 History bisacodyL [Dulcolax] 10 mg RECTAL DAILY PRN 03/14/21 03/14/21 History Allergies Allergy/AdvReac Type Severity Reaction Status Date / Time Sulfa (Sulfonamide Allergy Unknown Verified 03/14/21 10:53 Antibiotics) Surgical - Exam - General wheel chair bound well developed, obese - Eyes PERRL - ENT no hearing loss - Neck trachea midline - Respiratory normal expansion, normal respiratory effort - Cardiovascular Rhythm: regular - Abdomen Abdomen: soft, non tender - Genitourinary incontinent - Neurologic normal sensation - Musculoskeletal wheel chair - Psychiatric oriented to time, oriented to person, oriented to place, speech is normal, memory intact Results - Imaging CT scan - abdomen: report reviewed, image reviewed CT scan - pelvis: report reviewed, image reviewed Assessment and Plan Assessment: Impression: Right ureteral stone with stent, DM, cad,chf,htn,hx of pe,immobility Plan: cysto with right ureteroscopy and laser lithotripsy
[~2021-03-15 06:34] MED LIST: AMPICILLIN 1,000 MG in SODIUM CHLORIDE 0.9% 50 ML IVPB PRN; GENTAMICIN 120 MG in SODIUM CHLORIDE 0.9% 100 ML IVPB PRN; LACTATED RINGERS 1,000 ML IV SCH; LIDOCAINE 1% (10MG/ML) FOR IV START INTRADERMA PRN
[2021-03-15] MEDS ORDERED: ONDANSETRON 4 MG/2 ML VIAL IVP PRN (07:00)
[2021-03-15] MEDS ORDERED: HYDROmorphone 0.5 MG/0.5 ML SYRINGE IVP PRN (07:00)
[2021-03-15 07:39] LABS: Glucose,Whole Blood 145 mg/dL (75-99)
--- NOTE | 2021-03-15 08:03 | XR ---
EXAMINATION TYPE: XR KUB portable DATE OF EXAM: 03/15/2021 CLINICAL DATA: 71-year-old female preoperative kidney stones, [facility] COMPARISON: 07/01/2020 FINDINGS: Large patient body habitus. Moderate stool in the right side of the abdomen and in the rect um which is distended up to 8.9 cm wide. There is a right-sided ureteral stent. Centrally located rig ht-sided renal calculi are present measuring up to 1.1 cm. A couple left upper pole renal calculi delfin suring up to 4 mm. An ovoid calcification left paramedian mid abdomen measures 9 x 4 mm. Overall nono bstructive bowel gas pattern. IMPRESSION: Bilateral nephrolithiasis measuring up to 1.1 cm on the right and 4 mm on the left. A right ureteral stent is present. There may be a 9 x 4 mm calculus in the left renal collecting system. Clinically co rrelate.
[2021-03-15] MEDS ORDERED: SUCCINYLCHOLINE CHLORIDE 100 MG/5 ML SYR IV ONE (08:32)
[2021-03-15] MEDS ORDERED: PROPOFOL 10 MG/ML 20 ML VIAL IV ONE (08:32)
[2021-03-15] MEDS ORDERED: MIDAZOLAM 2 MG/2 ML VIAL ONE (08:32)
[2021-03-15] MEDS ORDERED: LIDOCAINE 1% INJ 10MG/ML (20 ML MDV) ONE (08:32)
[2021-03-15] MEDS ORDERED: fentaNYL (PF) 50 MCG/ML 2 ML AMP ONE (08:32)
--- NOTE | 2021-03-15 10:17 | P.OP ---
Date of Procedure: 03/15/21 Preoperative Diagnosis: Right ureteral stone with obstruction Postoperative Diagnosis: Right renal stones Procedure(s) Performed: Cystoscopy, removal double-J catheter right, laser lithotripsy and stone basketing 2 right renal stones, replacement of 6 x 24 stent Anesthesia: EARNESTINE Surgeon: Dillan De La Paz Estimated Blood Loss (ml): 0 Pathology: other (Stone) Condition: stable Disposition: PACU Indications for Procedure: The patient is 71. She has a chronic intermediate patient at [facility] due to multiple medical illnesses. She was seen at [facility] several weeks ago with an obstructing ureteral stone, urinary tract infection with sepsis. A stent was placed up. She comes for formal stone and stent removal. On KUB this morning the stone has migrated back into the kidney Description of Procedure: Patient brought to the operating suite. Given general anesthesia. Placed lithotomy position with sterile prep and drape. Cystoscopy is performed. The bladder shows inflammation. There is a double-J catheter emanating from the rig ht ureteral orifice. There is too much encrustation to successfully pass a wire into the stent. So a wire is passed up the right ureter into the renal pelvis. Over the wires passed an 11-13 reentry sheath. The inner sheath is removed and the flexible ureteroscope was passed into the kidney. In the lower pole calyx there are 2 stones identified. With the 270 laser probe stone was broken into sand-like fragments. The larger fragments are basketed. At the end of procedure there is no significant remaining fragments of. I will replace the double-J catheter for 1 week. I'll wire is passed through the ureteroscope into the kidney. I removed the ureteroscope and over the wire is passed a 6 x 24 double-J catheter that coils in the renal pelvis and in the bladder. A Rosario catheters placed. The string is attached to the suprapubic area The patient is awake and returned recovery in good condition she'll be discharged home upon recovery and found the office in one week for stent removal. Stone is been sent to pathology.
[2021-03-15 10:25] VITALS: TEMP 97.6
[2021-03-15 10:35] LABS: Glucose,Whole Blood 138 mg/dL (75-99)
[2021-03-15 11:13] VITALS: RESP 18
[2021-03-15 12:19] VITALS: BP 110/66; PULSE 68
--- NOTE | 2021-03-17 10:38 | FL ---
Fluoroscopy HISTORY: Renal calculus 16 seconds fluoroscopy time supplied to the referring clinician. 2 intraoperative C-arm images docum ent the procedure. See dictated report from urology.
== END 2021-03-15 12:35 ==
LOC: OR 06:34
PROVIDERS: ATTEND Urology
DX: N20.1 Calculus of ureter (principal); I48.91 Unspecified atrial fibrillation; I11.0 Hypertensive heart disease with heart failure; I50.9 Heart failure, unspecified; E11.9 Type 2 diabetes mellitus without complications; K21.9 Gastro-esophageal reflux disease without esophagitis; N28.9 Disorder of kidney and ureter, unspecified; Z87.442 Personal history of urinary calculi; Z86.19 Personal history of other infectious and parasitic diseases; G25.0 Essential tremor; Z90.49 Acquired absence of other specified parts of digestive tract; Z90.710 Acquired absence of both cervix and uterus; Z87.891 Personal history of nicotine dependence; Z82.49 Family history of ischemic heart disease and other diseases of the circulatory system; Z80.9 Family history of malignant neoplasm, unspecified; Z81.8 Family history of other mental and behavioral disorders; Z79.01 Long term (current) use of anticoagulants; Z79.4 Long term (current) use of insulin; Z79.51 Long term (current) use of inhaled steroids; Z79.899 Other long term (current) drug therapy; Z88.2 Allergy status to sulfonamides
CPT/HCPCS: 82365; 74018; 52356; C2625; C1769; J2250; J2405; J2001; J3010; J1580; J0290; J0330; J2704

== ENCOUNTER 2021-04-05 09:03 | Day surgery (SDC) | payer MEDICARE, BC, OTHER ==
[2021-04-03 14:25] VITALS: BMI 36.8
--- NOTE | 2021-04-04 20:07 | P.GSHP ---
History of Present Illness H&P Date: 04/04/21 71 yo female, resident of [facility] due to multiple health issues with immobility. She has a history of infected stones. She is s/p rt ureteroscopy for an infected stone. SHe now comes for left ureteroscopy, laser lithotripsy and stent placement for incfected small renal stones. the risks , comlications and aternatives have been described. - Constitutional Constitutional: Denies chills, Denies fever - EENT Eyes: denies blurred vision, denies pain Ears, nose, mouth and throat: Denies headache, Denies sore throat - Cardiovascular Cardiovascular: Denies chest pain, Denies shortness of breath - Respiratory Respiratory: Denies cough, Denies 7 - Gastrointestinal Gastrointestinal: Denies abdominal pain, Denies diarrhea, Denies nausea, Denies vomiting - Genitourinary (Female) Genitourinary: Denies dysuria, Denies hematuria - Genitourinary (Male) Genitourinary: Denies dysuria, Denies hematuria - Musculoskeletal Musculoskeletal: Denies myalgias - Integumentary Integumentary: Denies pruritus, Denies rash - Neurological Neurological: Denies numbness, Denies weakness - Psychiatric Psychiatric: Denies anxiety, Denies depression - Endocrine Endocrine: Denies fatigue, Denies weight change Past Medical History Past Medical History: Heart Failure, Diabetes Mellitus, Hypertension Additional Past Medical History / Comment(s): KIDNEY STONES. ABN-UA AND UC-TO START ON IV GENTAMICIN PER BRAIN PICKER History of Any Multi-Drug Resistant Organisms: None Reported Past Surgical History: Bowel Resection, Cholecystectomy, Hysterectomy Additional Past Surgical History / Comment(s): LITHOTRIPSY AND STENT PLACEMENT 03/14/21 Past Anesthesia/Blood Transfusion Reactions: No Reported Reaction Smoking Status: Former smoker - Past Family History Father Family Medical History: Myocardial Infarction (IN) Mother Family Medical History: Cancer, Congestive Heart Failure (CHF), Dementia Medications and Allergies Home Medications Medication Instructions Recorded Confirmed Type Citalopram Hydrobromide [CeleXA] 20 mg PO DAILY 06/27/20 04/03/21 History Omeprazole 20 mg PO DAILY 06/27/20 04/03/21 History buPROPion XL [Wellbutrin XL] 300 mg PO DAILY 06/27/20 04/03/21 History Atorvastatin [Lipitor] 40 mg PO HS tab 07/04/20 04/03/21 Rx Ferrous Sulfate [Iron (65 MG 325 mg PO W/LUNCH tab 07/04/20 04/03/21 Rx Elemental)] Acetaminophen [Tylenol] 650 mg PO Q6H PRN 03/14/21 04/03/21 History Ammonium Lactate Cream [Lac-Hydrin 1 applic TOPICAL BID PRN 03/14/21 04/03/21 History 12% Cream] Apixaban [Eliquis] 5 mg PO BID 03/14/21 04/03/21 History Ascorbic Acid [Vitamin C] 500 mg PO DAILY 03/14/21 04/03/21 History Budesonide [Pulmicort] 0.5 mg INHALATION BID 03/14/21 04/03/21 History Carbidopa-Levodopa 25-100 mg 1 each PO TID 03/14/21 04/03/21 History [Sinemet 25-100] Cyanocobalamin (Vitamin B-12) 1,000 mcg PO DAILY 03/14/21 04/03/21 History [Vitamin B-12] Insulin Glargine [Lantus] 5 unit SQ HS 03/14/21 04/03/21 History Ipratropium-Albuterol Nebulize 3 ml INHALATION QID PRN 03/14/21 04/03/21 History [Duoneb 0.5 mg-3 mg/3 ml Soln] Magnesium 400 mg PO DAILY 03/14/21 04/03/21 History Melatonin 5 mg PO HS 03/14/21 04/03/21 History Metoprolol Tartrate [Lopressor] 12.5 mg PO BID 03/14/21 04/03/21 History Multivitamins, Thera [Multivitamin 1 tab PO DAILY 03/14/21 04/03/21 History (formulary)] Sennosides [Senokot] 8.6 mg PO BID 03/14/21 04/03/21 History bisacodyL [Bisacodyl] 10 mg RECTAL DAILY PRN 03/14/21 04/03/21 History bisacodyL [Dulcolax] 10 mg RECTAL DAILY PRN 03/14/21 04/03/21 History Allergies Allergy/AdvReac Type Severity Reaction Status Date / Time Sulfa (Sulfonamide Allergy Unknown Verified 04/03/21 14:17 Antibiotics) Surgical - Exam - General well developed, well nourished, no distress, obese - Eyes normal ocular movement - ENT no hearing loss - Neck trachea midline - Respiratory normal expansion, normal respiratory effort - Cardiovascular Rhythm: regular - Abdomen Abdomen: soft, non tender - Genitourinary incontinent - Integumentary no growths - Neurologic normal sensation - Musculoskeletal wheelchair bound - Psychiatric oriented to time, oriented to place Results - Imaging Abdominal x-ray: report reviewed, image reviewed CT scan - abdomen: report reviewed, image reviewed CT scan - pelvis: report reviewed, image reviewed Assessment and Plan Assessment: Impression: Infected left renal stones. HTN CAD incontinence, immobility Plan: Left ureteroscopy withleft laser lithtripsy and stent removal
[~2021-04-05 09:03] MED LIST changes: +DEXAMETHASONE SOD PHOSPHATE 4 MG/ML 1 ML VIAL IV ONE; +FAMOTIDINE 20 MG/2 ML VIAL IV PRN; +HYDROmorphone 0.5 MG/0.5 ML SYRINGE IVP PRN; -LIDOCAINE 1% (10MG/ML) FOR IV START INTRADERMA PRN; +ONDANSETRON 4 MG/2 ML VIAL IVP ONE
[2021-04-05 10:28] LABS: Glucose,Whole Blood 116 mg/dL (75-99)
[2021-04-05] MEDS ORDERED: LIDOCAINE 1% (10MG/ML) FOR IV START INTRADERMA ONE (10:31)
--- NOTE | 2021-04-05 10:47 | XR ---
EXAMINATION TYPE: XR KUB DATE OF EXAM: 04/05/2021 10:25 AM CLINICAL HISTORY: Kidney stones. TECHNIQUE: 3 supine KUB images of the abdomen are obtained. COMPARISON: Prior abdominal x-ray March 15, 2021 FINDINGS: Current exam is suboptimal due to patient's large body habitus and increasing colonic fecal burden. There is suspected interval successful treatment of two large right renal calculi with perha ps some smaller calcific fragments redemonstrated near this level. Interval removal of right double-J ureter stent. There is persistent 6 mm calculus centrally lower pole left kidney suspected near left L2 transverse process. Cholecystectomy clips are redemonstrated. Multilevel spurring of the thoracolumbar spine. Pelvic vasc ular calcifications again seen. IMPRESSION: As above.
[2021-04-05] MEDS ORDERED: NEOSTIGMINE 1 MG/ML 10 ML VIAL ONE (10:55)
[2021-04-05] MEDS ORDERED: SUCCINYLCHOLINE CHLORIDE 100 MG/5 ML SYR IV ONE (10:55)
[2021-04-05] MEDS ORDERED: fentaNYL (PF) 50 MCG/ML 2 ML AMP ONE (10:55)
[2021-04-05] MEDS ORDERED: ROCURONIUM 10 MG/ML (5 ML VIAL) IV ONE (10:55)
[2021-04-05] MEDS ORDERED: GLYCOPYRROLATE 0.2 MG/ML 2 ML VIAL ONE (10:55)
[2021-04-05] MEDS ORDERED: LIDOCAINE 1% INJ 10MG/ML (20 ML MDV) ONE (10:55)
[2021-04-05] MEDS ORDERED: PROPOFOL 10 MG/ML 20 ML VIAL IV ONE (10:55)
[2021-04-05] MEDS ORDERED: IOPAMIDOL-370 50ML BTL MISCELLANE ONE (11:46)
--- NOTE | 2021-04-05 12:17 | P.OP ---
Date of Procedure: 04/05/21 Preoperative Diagnosis: Left renal calculi Postoperative Diagnosis: Same Procedure(s) Performed: Cystoscopy, left ureteroscopy with laser lithotripsy, placement of 624 double-J catheter Anesthesia: EARNESTINE Surgeon: Dillan De La Paz Estimated Blood Loss (ml): 0 Pathology: none sent Condition: stable Disposition: PACU Indications for Procedure: The patient is 71-year-old . She had a right ureteroscopy laser lithotripsy to an infected obstructing stone. She has some small stones in the left kidney that are probably infected also. Sheath and placed on IV antibiotics preoperatively for the recurrent urine infection. She now comes for laser lithotripsy left. Description of Procedure: The patient is brought to the operating suite. She is given a general endotracheal anesthesia. She's placed lithotomy position with sterile prep and drape. The Rosario catheter had been removed. Cystoscopy Foroblique lens and 21- Spanish sheath shows catheter edema. The left renal orifice is identified and intubated with an 035 wire that is passed into the kidney. Over the wires passed [id number] reentry sheath. The inner sheath is removed. Left ureteroscopy with the flexible ureteroscope was performed. 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 The flexible ureteroscope was introduced in the kidney. The stones are identified in the lower and middle pole calyces. With the 275 laser probe the stones are dusted. There is not enough fragments to grasp and removed. At the end of the procedure I inspect the collecting system there are no remaining stones. Pull out ureteroscopy does not identify any stones. Through the ureteral sheath and 035 wires passed into the kidney. The ureteral sheath is removed and an 6 x 24 double-J catheter is coiled in the renal pelvis and the bladder strain remains attached. The Rosario catheter is introduced. The patient awake and returned recovery room in good condition. Impression successful laser lithotripsy to left renal stones. The patient be discharged home upon recovery and found the office in one week.
[2021-04-05] MEDS ORDERED: LACTATED RINGERS 1,000 ML IV ONE ×2 (12:24)
[2021-04-05 12:41] VITALS: TEMP 97.7
[2021-04-05 12:42] VITALS: RESP 16
--- NOTE | 2021-04-05 12:48 | FL ---
EXAMINATION TYPE: FL urography retrograde DATE OF EXAM: 04/05/2021 CLINICAL HISTORY: Left-sided kidney stones. TECHNIQUE: Fluoroscopy. COMPARISON: None. FINDINGS: Fluoroscopic guidance was provided during left kidney stone treatment with ureter stent in sertion procedure performed by Dr. De La Paz. A total of 3.56 minutes of fluoroscopic time was utilized during the procedure and 5 spot images are acquired. Images acquired show access of left ureter with hydronephrosis, subsequent advancement of guidewire and then ureter stent. IMPRESSION: As Above.
[2021-04-05 13:03] LABS: Glucose,Whole Blood 127 mg/dL (75-99)
[2021-04-05 13:30] VITALS: PULSE 69
[2021-04-05 13:43] VITALS: BP 110/66
== END 2021-04-05 14:57 ==
LOC: OR 09:03
PROVIDERS: ATTEND Urology
DX: N20.0 Calculus of kidney (principal); I11.0 Hypertensive heart disease with heart failure; Z87.442 Personal history of urinary calculi; Z90.49 Acquired absence of other specified parts of digestive tract; Z90.710 Acquired absence of both cervix and uterus; I50.9 Heart failure, unspecified; E78.5 Hyperlipidemia, unspecified; E11.9 Type 2 diabetes mellitus without complications; F32.9 Major depressive disorder, single episode, unspecified; G20 Parkinson's disease; Z87.891 Personal history of nicotine dependence; Z82.49 Family history of ischemic heart disease and other diseases of the circulatory system; Z80.9 Family history of malignant neoplasm, unspecified; Z81.8 Family history of other mental and behavioral disorders; Z79.01 Long term (current) use of anticoagulants; Z79.4 Long term (current) use of insulin; Z79.51 Long term (current) use of inhaled steroids; Z79.899 Other long term (current) drug therapy; Z88.2 Allergy status to sulfonamides
CPT/HCPCS: 52356; 74420; 74018; C2625; C1769; J1100; J2710; J2405; J2001; J3010; J1580; J0290; J0330; J2704; Q9967